=== PATIENT | male | born 1960 | race Caucasian/White ===

== ENCOUNTER 2016-10-07 10:16 | Inpatient (IN) | payer MEDICAID ==
[~2016-10-07] VITALS: Ht 182.9 cm; Wt 81.3 kg
[~2016-10-07 10:16] MED LIST: ACET650S27 PEG; DICL100G5 TOP; ENOX40DI SQ; HYPR15DR4 OP; LACT-128 PEG; LEVE500T26 PEG; MAGN400O4 PEG; OXYC5TAB84 PO; PROP10TA10 PEG; [UNRECOGNIZED DRUG - CODE] PEG
--- OUTSIDE RECORDS SUMMARY | 2016-10-07 10:26 | XMS REPORT | Continuity of Care Document ---
Author Author [facility] Organization [facility] Address Unknown Phone Unavailable Support Name Relationship Address Phone ISHAN PORTILLO MD Caregiver [address] [place] [address] [place] [address] Unavailable ISHAN PORTILLO MD Caregiver [address] [place] [address] [place] [address] Unavailable ROSA NGUYEN Caregiver [address] [place] [address] Unavailable ARIADNE METCALF Next Of Kin [address] [place] [address] Insurance Providers Guarantor Héctor Sprague Address [address] [place] [address] Email DENIED/NO PORTAL Payer Self Pay Subscriber's Name Héctor Sprague Relationship 18 Self Advance Directives Directive Response Recorded Date/Time Ordered Resuscitation Status Full Code 06/20/16 7:56pm Resuscitation Documents on File No 06/20/16 6:26pm DPOA for Healthcare Only No 06/21/16 7:32am Living Will No 06/20/16 6:26pm Problems Active Problems Medical Problem Onset Date Status Anemia Unknown Acute Blood loss anemia Unknown Acute Chronic constipation Unknown Chronic Dysphagia following cerebrovascular accident (CVA) 04/27/2016 Chronic Gait instability Unknown Chronic HTN (hypertension) Unknown Chronic Hemiparesis affecting left side as late effect of cerebrovascular accident (CVA ) 04/27/2016 Chronic Knee pain, left Unknown Acute Left displaced femoral neck fracture Unknown Acute Tobacco dependence Unknown Chronic Medications Current Home Medications Medication Dose Units Route Directions Days Qty Instructions Start Date Acetaminophen 650 Mg/20.3 Ml Solution 650 Mg Peg Tube Every 6 Hours as needed for Pain/Air Hunger 06/20/16 Diclofenac Sodium (Voltaren) 100 Gm Gel..gram. 1 Applic Topically Three Times A Day 06/20/16 Enoxaparin Sodium (Lovenox) 40 Mg/0.4 Ml Inj 40 Mg Sub-Q Every 24 Hours 27 Days 06/25/16 Guaifenesin (Cough Syrup) 100 Mg/5 Ml Liquid 10 Ml Peg Tube Every 4 Hours as needed for Cough 06/20/16 Hypromellose (Isopto Tears) 150 Drop/15 Ml Drops 1 Drop Ophthalmic As Needed for Dry Eyes 06/20/16 Lactose-Reduced Food/Fiber (Jevity 1.5 Chris Liquid) 237 Ml Liquid 270 Ml Peg Tube Four Times Daily 06/20/16 Levetiracetam 500 Mg Tablet 500 Mg Peg Tube Twice A Day 06/20/16 Magnesium Hydroxide (Milk Of Magnesia) 400 Mg/5 Ml Oral.susp 30 Ml Peg Tube Twice A Day as needed for Constipation/Stool Softening 06/20/16 Oxycodone Hcl 5 Mg Tablet 5-15 Mg Oral Every 3 Hours as needed for Pain 60 Tablet 06/25/16 Propranolol Hcl 10 Mg Tablet 10 Mg Peg Tube Twice A Day Take 1 tablet, by mouth, 2 times a day. 06/20/16 Past Home Medications Medication Directions Ordered Status Amlodipine Besylate 5 Mg Tablet, 5 Mg Peg Tube Daily 06/20/16 Discontinued Social History Social History Problem Response Recorded Date/Time Onset Date Status Reason for Hospitalization Left hip fracture 06/25/2016 9:55am Not Applicable Not Applicable Has the pt used tobacco in the last 12 months Yes 06/20/2016 6:29pm Not Applicable Not Applicable Query Response Start Date Stop Date Smoking Status Former smoker Hospital Discharge Instructions Instructions: Care Instructions: Reason for Hospitalization: Left hip fracture I was in the hospital because (patient own words): "I FELL" Discharge Diet: Feeding tub Discharge Activity: WBAT Follow Up Appointments: Schedule follow up apt with Dr Nguyen in 1 week. Check CBC and BMP at that time Schedule follow up apt with Dr Diaz in 2 weeks for post-op follow up Pending Lab / Results: No Pending Lab Patient Instructions: Weight bearing as tolerated. Lovenox 40mg SQ daily for 30 days post-op. Last dose 07/21/16. Wound/Incision Care: Leave hip dressing intact until follow up Pain Scale Utilized to Educate Patient: 0-10 Pain Scale Pain Management/Treatment: Oxycodone as needed for pain control Expected Signs/Symptoms: Continued strenghtening and recovery Notify Physician If: Elevated fever, severe pain, shortness of breath, bleeding or other concerns During Business Hours:: Please call the physician's office [facility] After Business Hours:: Please call [phone] and have the beauty operator apprentice page the physician. Condition at time of discharge: Good Plan of Care Discharge Date 06/25/16 12:20pm Disposition 04 TO [facility] Instructions/Education Provided [facility] [place] [facility] [place] Instructions Prescriptions See Medication Section Care Plan and Goals See Discharge Instructions Section Functional Status Query Response Date Recorded Mobility Status Ambulatory w/assist June 25, 2016 9:55am Assistive Devices None June 25, 2016 9:55am Activity Limitations None June 25, 2016 9:55am Feeding Ability Independent June 25, 2016 9:55am Toileting Ability Independent June 25, 2016 9:55am Grooming Ability Assist June 25, 2016 9:55am Dressing Ability Assist June 25, 2016 9:55am Driving Ability Dependent June 25, 2016 9:55am Housework Ability Dependent June 25, 2016 9:55am Meal Preparation Ability Assist June 25, 2016 9:55am Stair Climbing Ability Assist June 25, 2016 9:55am Ability to complete ADL's impeded by Impaired Mobility June 25, 2016 9:55am Cognitive/Perceptual Impairments None June 25, 2016 9:55am Allergies, Adverse Reactions, Alerts Allergen Type Severity Reaction Status Last Updated No Known Drug Allergies Allergy Unknown Active 06/20/16 Immunizations No immunization records. Vital Signs Acute Vital Signs Vital Response Date/Time Temperature (Fahrenheit) 95.8 deg F (96.8 - 99.1) 06/25/2016 12:13pm Temperature (Calculated Celsius) 35.54082 degrees C (36.0 - 37.3) 06/25/2016 12:13pm Temperature Source Oral 06/25/2016 12:13pm Pulse Rate (adult) 88 bpm (60 - 100) 06/25/2016 12:13pm Respiratory Rate 16 breaths/min (10 - 20) 06/25/2016 12:13pm O2 Sat by Pulse Oximetry 95 % (90 - 100) 06/25/2016 12:13pm Oxygen Delivery Method Room Air 06/25/2016 12:13pm Oxygen Delivery Method Room Air 06/21/2016 6:00pm Oxygen Flow Rate 3.00 L/min 06/21/2016 5:45pm Blood Pressure 104/67 mm Hg 06/25/2016 12:13pm Blood Pressure Source Automatic Cuff 06/25/2016 12:13pm Height (Feet) 6 feet 06/24/2016 11:44am Height (Inches) 0.00 inches 06/24/2016 11:44am Weight (Kilograms) 76.300 kg 06/25/2016 11:57am Body Mass Index (BMI) 21.1 06/20/2016 6:22pm Results Laboratory Results Test Name Result Units Flags Reference Collection Date/Time Result Date/ Time Comments White Blood Count 9.4 T/MM3 4.5-11.0 06/25/2016 4:1606/25/2016 5: 09am Red Blood Count 2.69 M/MM3 L 4.50-5.90 06/25/2016 4:1606/25/2016 5: 09am Hemoglobin 8.3 GM/DL L 13.5-17.5 06/25/2016 4:1606/25/2016 5:09am Hematocrit 25.4 % L 41-53 06/25/2016 4:1606/25/2016 5:09am Mean Corpuscular Volume 94.4 UM3 80-100 06/25/2016 4:1606/25/2016 5: 09am Mean Corpuscular Hemoglobin 30.9 UUG 26-34 06/25/2016 4:162015 5:09am Mean Corpuscular Hemoglobin Concent 32.7 GM/DL 31-37 06/25/2016 4:1606/25/2016 5:09am RDW Standard Deviation 39.3 FL 36.9-50.2 06/25/2016 4:1606/25/2016 5 :09am Platelet Count 219 T/MM3 130-400 06/25/2016 4:1606/25/2016 5:09am Mean Platelet Volume 11.9 UM3 9.4-12.4 06/25/2016 4:1606/25/2016 5: 09am Neutrophils (%) (Auto) 61.6 % 33-66 06/25/2016 4:1606/25/2016 5: 09am Lymphocytes (%) (Auto) 21.9 % L 23-45 06/25/2016 4:1606/25/2016 5: 09am Monocytes (%) (Auto) 14.7 % H 0-9.0 06/25/2016 4:1606/25/2016 5:09am Eosinophils (%) (Auto) 1.2 % 0-4 06/25/2016 4:1606/25/2016 5:09am Basophils (%) (Auto) 0.4 % 0-2 06/25/2016 4:1606/25/2016 5:09am Immature Granulocyte % (Auto) 0.2 % 0.0-0.5 06/25/2016 4:162015 5:09am Absolute Neutrophils (auto) 5.8 T/MM3 1.8-7.7 06/25/2016 4:162015 5:09am Absolute Lymphocytes (auto) 2.1 T/MM3 1-4.8 06/25/2016 4:162015 5:09am Absolute Monocytes (auto) 1.4 T/MM3 H 0-0.8 06/25/2016 4:162015 5:09am Absolute Eosinophils (auto) 0.1 T/MM3 0-0.5 06/25/2016 4:162015 5:09am Absolute Basophils (auto) 0.0 T/MM3 0-0.2 06/25/2016 4:1606/25/2016 5:09am Absolute Immature Granulocyte (auto 0.02 T/MM3 0.00-0.03 06/25/2016 4: 1606/25/2016 5:09am Prothromb Time International Ratio 1.18 H 0.76-1.04 06/20/2016 6:38pm 06/20/2016 6:51pm THERAPUTIC RANGE=2.00-3.00 FOR ANTI-THROMBOSIS THERAPUTIC RANGE=2.50-3.50 FOR IMPLANTED VALVE Icterus Index < 2 0-7 06/25/2016 4:1606/25/2016 5:18am Chemistry Specimen Hemolysis < 15 0-25 06/25/2016 4:1606/25/2016 5 :18am 0-25: Specimen Exhibited No Hemolysis. Turbidity < 20 0-20 06/25/2016 4:1606/25/2016 5:18am Sodium Level 140 MEQ/L 134-144 06/25/2016 4:1606/25/2016 5:18am Potassium Level 3.9 MEQ/L 3.6-5 06/25/2016 4:1606/25/2016 5:18am Chloride Level 100 MEQ/L 98-107 06/25/2016 4:1606/25/2016 5:18am Carbon Dioxide Level 32 MEQ/L H 22-30 06/25/2016 4:1606/25/2016 5: 18am Anion Gap 8 MEQ/L 5-15 06/25/2016 4:1606/25/2016 5:18am Blood Urea Nitrogen 15.0 MG/DL 9-20 06/25/2016 4:1606/25/2016 5: 18am Creatinine 0.4 MG/DL L 0.8-1.5 06/25/2016 4:1606/25/2016 5:18am BUN/Creatinine Ratio 38 RATIO H 6-26 06/25/2016 4:1606/25/2016 5: 18am Glomerular Filtration Rate Calc 223 06/25/2016 4:1606/25/2016 5: 18am Glucose Level 111 MG/DL H 75-110 06/25/2016 4:1606/25/2016 5:18am Calculated Osmolality 271 MOSM/KG 261-280 06/25/2016 4:1606/25/2016 5:18am Calcium Level 8.3 MG/DL L 8.4-10.2 06/25/2016 4:1606/25/2016 5:18am Total Bilirubin 0.50 MG/DL 0.20-1.30 06/25/2016 4:1606/25/2016 5: 18am Alkaline Phosphatase 48 U/L 38-126 06/25/2016 4:1606/25/2016 5:18am Total Protein 6.2 G/DL L 6.3-8.2 06/25/2016 4:1606/25/2016 5:18am Albumin 2.9 G/DL L 3.5-5.0 06/25/2016 4:1606/25/2016 5:18am Globulin 3.3 G/DL 2.4-3.6 06/25/2016 4:1606/25/2016 5:18am Albumin/Globulin Ratio 0.9 RATIO L 1.1-2.2 06/25/2016 4:1606/25/2016 5:18am Aspartate Amino Transf (AST/SGOT) 29 U/L 17-59 06/25/2016 4:16am 2015 5:18am Alanine Aminotransferase (ALT/SGPT) 30 U/L 21-72 06/25/2016 4:16am 5:18am Magnesium Level 2.1 MG/DL 1.6-2.3 06/25/2016 4:16am 06/25/2016 5:18am Thyroid Stimulating Hormone (TSH) 2.55 MIU/L 0.47-4.68 06/20/2016 6: 38pm 06/20/2016 7:27pm Prealbumin 22.6 MG/DL 17.6-36.0 06/20/2016 6:38pm 06/20/2016 7:33pm Stool C. difficile Toxin B Gene PCR NEGATIVE NEGATIVE 06/25/2016 4: 07am 06/25/2016 5:58am If Toxin A is clinically indicated, treat accordingly. Urine Color YELLOW YELLOW 06/20/2016 6:33pm 06/20/2016 6:55pm Urine Turbidity SL CLOUDY CLEAR 06/20/2016 6:33pm 06/20/2016 6:55pm Urine Specific [place] 1.015 1.015-1.025 06/20/2016 6:33pm 2015 6:55pm Urine pH 8.5 H 5.0-8.0 06/20/2016 6:33pm 06/20/2016 6:55pm Urine Leukocyte Esterase NEGATIVE NEGATIVE 06/20/2016 6:33pm 2015 6:55pm Urine Nitrite NEGATIVE NEGATIVE 06/20/2016 6:33pm 06/20/2016 6:55pm Urine Protein NEGATIVE NEGATIVE 06/20/2016 6:33pm 06/20/2016 6:55pm Urine Glucose (UA) NEGATIVE NEGATIVE 06/20/2016 6:33pm 06/20/2016 6: 55pm Urine Ketones NEGATIVE NEGATIVE 06/20/2016 6:33pm 06/20/2016 6:55pm Urine Urobilinogen 0.2 EU/DL NORMAL 06/20/2016 6:33pm 06/20/2016 6: 55pm Urine Bilirubin NEGATIVE NEGATIVE 06/20/2016 6:33pm 06/20/2016 6: 55pm Urine Blood NEGATIVE NEGATIVE 06/20/2016 6:33pm 06/20/2016 6:55pm Urinalysis Comment MICROSCOPIC NOT IND. 06/20/2016 6:33pm 2015 6:55pm Name: HÉCTOR SPRAGUE Unit #: [id number] : 1960 Sex: M Admit Date: 06/20/16 Loc / Svc: SRG Discharge Date: DIAGNOSTIC IMAGING REPORT Report #: [id number] [facility] [place] Indication: ITS.REASON: fever, leukocytosis PROCEDURE: CHEST 1 VIEW: Encounter: Initial Comparison: June 20, 2016 FINDINGS: The lungs are stable. There is no new abnormal airspace opacity, pleural effusion or pneumothorax identified. The heart size, pulmonary vasculature and mediastinum are unchanged. IMPRESSION: Stable chest without acute cardiopulmonary abnormality. . Procedures No known history of procedures. Encounters Encounter Location Arrival/Admit Date Discharge/Depart Date Attending Provider Discharged Inpatient [facility] 06/20/16 5:53pm 06/25/16 12:20pm ISHAN PORTILLO MD
[2016-10-07] MEDS ORDERED: LEVE500S PEG (10:29)
[2016-10-07] MEDS ORDERED: GABA-338 PEG (10:30)
[2016-10-07] MEDS ORDERED: PARO-38 PO (10:31)
[2016-10-07] MEDS ORDERED: HYDR-4078 PEG (10:33)
--- NOTE | 2016-10-07 10:38 | NUR ---
ADMISSION PT WAS TO BE DIRECT ADMIT TO 110. PT TRANSFERRED TO ROOM 110 PER CART
--- NOTE | 2016-10-07 10:38 | NUR ---
ARRIVED PT ARRIVED AT 1038 VIA CART FROM [facility] IN [place]. PT TRANSFERRED VIA SLIDE BOARD WITH ASSIST TIMES 3. PT SETTLED INTO THE ROOM AT THIS TIME.
[2016-10-07 10:52] VITALS: Ht 182.9 cm; Wt 81.3 kg
[2016-10-07] MEDS ORDERED: MORPHINE SULFATE 2 MG SYRINGE IV PRN (11:00)
[2016-10-07] MEDS ORDERED: ONDANSETRON 4mg/2ml INJECTION IV PRN (11:00)
[2016-10-07 11:14] VITALS: BP 116/67; PULSE 87; RESP 16; TEMP 99.7; O2SAT 95
[2016-10-07] MEDS ORDERED: CEFAZOLIN 1 GRAM INJECTION IV ONE (11:15)
[2016-10-07] MEDS ORDERED: NOZIN NASAL SWAB NS PRN (11:15)
[2016-10-07] MEDS ORDERED: DEXAMETHASONE 4mg/ml - 1ml INJECTION IV ONE (11:15)
[2016-10-07] MEDS ORDERED: MENT118G TOP (11:15)
[2016-10-07 11:22] VITALS: PULSE 87; RESP 16; O2SAT 95
[2016-10-07 11:27] LABS: BASOPHILS # (AUTO) 0.1 T/MM3 (0-0.2); BASOPHILS % (AUTO) 0.5 % (0-2); EOSINOPHILS # (AUTO) 0.1 T/MM3 (0-0.5); EOSINOPHILS % (AUTO) 0.5 % (0-4); HCT - HEMATOCRIT 31.5 % (41-53); HGB - HEMOGLOBIN 10.4 GM/DL (13.5-17.5); IMMATURE GRANULOCYTE # (AUTO) 0.02 T/MM3 (0.00-0.03); IMMATURE GRANULOCYTE % (AUTO) 0.2 % (0.0-0.5); LYMPHOCYTES # (AUTO) 2.2 T/MM3 (1-4.8); LYMPHOCYTES % (AUTO) 21.2 % (23-45); MEAN CORPUSCULAR HGB 28.8 UUG (26-34); MEAN CORPUSCULAR VOLUME 87.3 UM3 (80-100); MONOCYTES # (AUTO) 0.9 T/MM3 (0-0.8); MONOCYTES % (AUTO) 8.5 % (0-9.0); NEUTROPHILS #(AUTO)-ABSOLUTE 7.2 T/MM3 (1.8-7.7); NEUTROPHILS % (AUTO) 69.1 % (33-66); RED BLOOD COUNT 3.61 M/MM3 (4.50-5.90); WBC - WHITE BLOOD COUNT 10.4 T/MM3 (4.5-11.0)
[2016-10-07 11:32] LABS: INR 1.25 (0.76-1.04); PROTHROMBIN TIME 13.6 SEC (9.31-12.49)
--- NOTE | 2016-10-07 11:32 | CONSPD ---
Consultation Info Date DATE: 10/07/16 TIME: 11:14 Attending Physician Jayro Diaz MD Reason for Consultation: left hip periprosthetic hip fracture Impression/Recommendation Impression/Recommendation: (1) Periprosthetic fracture around internal prosthetic left hip joint, initial encounter Status: Acute Recommendation: Dr. Diaz is recommending a revision of the left hip endoprosthesis with possible conversion to total hip arthroplasty. Surgery is planned for 0730 10/08/16. NPO after midnight consent labs medical clearance Risks and benefits of the recommended procedure were discussed with the patient and/or patient's legal financial services representative. They include: infection, nerve damage, artery damage, stroke, SD, PE, DVT, ileus, continued pain, or risk that the injury may not heal despite surgery. There are also medical risks of anesthesia. Risks are not limited to the above mentioned alone. Ortho HPI HPI Elements HPI This is a 55 year old male who resides at [facility] in [place]. He is status post a left hip endoprosthesis by Dr. Diaz on 06/20/16. He was seen in our clinic as recently as 10/04/16 at which time x-rays were taken confirming a well seated left endoprosthesis. He is a marginal ambulator at best secondary to left sided weakness from a stroke sustained on 04/27/16. He has residual dysphasia as well. Héctor states he fell asleep in his wheelchair at the alf after his visit on 10/04/16 and fell out of his wheelchair causing left hip pain. Apparently, no X-rays were completed until today, which revealed a periprosthetic hip fracture on the left. Dr. Diaz was contacted for definitive surgical treatment and agreed to be the management consultant. Dr. Chau agreed to be the admitting physician. Héctor presently locates pain in the left hip, worse with activity, better with rest and immobilization and narcotics. Review of Systems Constitutional: DENIES: chills, dizziness, fever, weakness Cardiovascular DENIES: chest pain Rhythm/Rate: DENIES: irregular beat Vascular: DENIES: intermittent claudication, pallor of an extremity Pulmonary Respiratory: DENIES: cough, sputum GI Upper Abdomen: DENIES: pain Lower Abdomen: DENIES: blood in stool General: DENIES: dysuria, pain Musculoskeletal General: joint pain (left hip), DENIES: pain Integumentary Skin: DENIES: rash Neurological General: numbness, weakness (known left sided stroke) Endocrine DENIES: heat/cold intolerance Hematologic/Lymphatic DENIES: easy bruising Past Medical History Adult Past Medical History Patient History: (1) HTN (hypertension) (2) Chronic constipation (3) Gait instability (4) Dysphagia following cerebrovascular accident (CVA) Onset Date: 04/27/2016 (5) Hemiparesis affecting left side as late effect of cerebrovascular accident ( CVA) Onset Date: 04/27/2016 Surgical History Patient's Surgical History: PEG Tube placement Current Medications Acetaminophen (Acetaminophen) 650 Mg/20.3 Ml Solution, 650 MG PEG Q6H PRN for PAIN/AIR HUNGER, (Reported) Last Taken: Unknown Dose on 10/06/16 Diclofenac Sodium (Voltaren) 100 Gm Gel..gram., 1 APPLIC TOP TID, (Reported) Gabapentin (Gabapentin) 300 Mg Capsule, 300 MG PEG TID, (Reported) Last Taken: Unknown Dose on 10/07/16 0400 Guaifenesin (Cough Syrup) 100 Mg/5 Ml Liquid, 10 ML PEG Q4HR PRN for COUGH, (Reported) Last Taken: Unknown Dose on Unknown Date & Time Hydrocodone/Acetaminophen ( [place] 10-325 Tablet) 10-325 Tablet, 1 TAB PEG Q6H PRN for PAIN, (Reported) Last Taken: Unknown Dose on 10/07/16 Hypromellose (Isopto Tears) 150 Drop/15 Ml Drops, 1 DROP OP PRN, (Reported) Last Taken: UNKNOWN on Unknown Date & Time Lactose-Reduced Food/Fiber ( Jevity 1.5 Chris Liquid) 237 Ml Liquid, 270 ML PEG QID, (Reported) Last Taken: 1 CAN on 10/07/16 0600 Levetiracetam (Levetiracetam) 500 Mg Tablet , 500 MG PEG BID, (Reported) Last Taken: 500 MG on 10/07/16 0700 Levetiracetam (Levetiracetam) 500 Mg/5 Ml Solution, 5 ML PEG BID, (Reported) Last Taken: Unknown Dose on 10/07/16 0800 Magnesium Hydroxide (Milk of Magnesia) 400 Mg/5 Ml Oral.susp, 30 ML PEG BID PRN for CONSTIPATION/STOOL SOFTENING, (Reported) Last Taken: Unknown Dose on 10/03/16 Menthol (Biofreeze) 118 Ml Gel..ml., 1 APPLIC TOP PRN, (Reported) Last Taken: 1 APPLIC on 10/06/16 1340 Paroxetine HCl (Paroxetine HCl) 20 Mg Tablet, 20 MG PO DAILY, (Reported) Last Taken: Unknown Dose on 10/07/16 0800 Propranolol HCl (Propranolol HCl) 10 Mg Tablet, 10 MG PEG BID, (Reported) Last Taken: Unknown Dose on 10/07/16 0800 Allergies Allergies: Coded Allergies: No Known Drug Allergies (Verified Allergy, Unknown, 06/20/16) Family History Family History: .Father with renal failure. Brother with CVA Vaccines No Social History Does patient use chewing tobac: No Second Hand Exposure: No Substance Use Type: does not use Alcohol Intake: former alcohol drinker Marital Status: Housing: alf Current Occupational Status: previously employed Advance Directives: Yes DPOA for Healthcare Only Physical Exam General General: well nourished, well developed, no acute distress Respiratory FOUND non-labored Cardiovascular FOUND pedal pulses intact Capillary Refill: <2 sec Abdomen Abdominal: FOUND soft, NOT FOUND tender Musculoskeletal Musculoskeletal Brief: FOUND: deformity (left leg shortened and externally rotated), loss of motion (left hip), tenderness Integumentary FOUND dry, FOUND pink, FOUND warm Neurologic FOUND intact to light touch Comments status post stroke affecting left side. He does have AROM of the knee and ankle. MENA RAINES Oct 07, 2016 11:15
[2016-10-07 11:37] LABS: ALBUMIN 3.6 G/DL (3.5-5.0); ALBUMIN/GLOBULIN RATIO 0.9 RATIO (1.1-2.2); ALKALINE PHOSPHATASE 74 U/L (38-126); ALT (SGPT) 41 U/L (21-72); ANION GAP 10 MEQ/L (5-15); AST (SGOT) 20 U/L (17-59); BUN/CREATININE RATIO 32 RATIO (6-26); CALCIUM 8.8 MG/DL (8.4-10.2); CHLORIDE 99 MEQ/L (98-107); CO2 - CARBON DIOXIDE 31 MEQ/L (22-30); CREATININE 0.5 MG/DL (0.8-1.5); GLOMERULAR FILTRATION RATE 173; GLUCOSE 126 MG/DL (75-110); POTASSIUM 4.2 MEQ/L (3.6-5); SODIUM 140 MEQ/L (134-144); TOTAL PROTEIN 7.4 G/DL (6.3-8.2)
--- NOTE | 2016-10-07 11:57 | HPPDOC ---
MICHAEL MARTINEZ V CARROTING MACHINE OPERATOR 10/07/16 1129: HPI - Adult Date DATE: 10/07/16 TIME: 11:19 General Chief Complaint: Fall with left periprosthetic hip fracture History of Present Illness Héctor is a pleasant 55-year-old male who is well known to the hospitalist services as he was admitted last June for acute left femoral neck fracture. He underwent a left Hemiarthroplasty by Dr. Diaz. He currently resides at [facility] in [place], [place]. Due to his chronic comorbidities including an acute CVA in 2015 with which left him with left heel. No paresis and chronic dysphasia. He does have a PEG tube placed in which he receives all nutrition feeds as well as medications. Patient reports that on Monday10/05/16 he was sitting in the wheelchair and he fell out of it, landing on the left. He was seen by his primary care provider , Dr. Jarrett yesterday at those were a hospital in which he had an x-ray obtained at that time. He was found to have a periprosthetic left hip fracture with a proximal fragment indicating mild displacement. [facility] Navarro was contacted by Dr Jarrett regarding direct admission for further evaluation and treatment. Will be admitted as an inpatient under the care of Dr. Navarro with consultation placed to Dr. Diaz for orthopedic evaluation and treatment. Héctor is seen today on initial examination. He is alert,oriented and pleasant during examination. Does complain of left hip discomfort during examination. Lower extremity is noted to be laterally rotated. Strong pedal pulse with sensation and motor intact. Past Medical History Past Medical History History of acute CVA.-04/2016 Left hemiparesis- chronic since CVA Chronic dysphagia. PEG tube presence Hypertension. Hx of alcohol and tobacco dependence Surgical History Patient's Surgical History: Left Hemiarthroplasty- 06/22/16- Dr Diaz PEG Tube placement 2016 Hernia repair Current Medications Home Meds Reported Medications Menthol (Biofreeze) 118 Ml Gel..ml., 1 APPLIC TOP PRN 10/07/16 Hydrocodone/Acetaminophen ([place] 10-325 Tablet) 10-325 Tablet, 1 TAB PEG Q6H Y for PAIN 10/07/16 Paroxetine HCl (Paroxetine HCl) 20 Mg Tablet, 20 MG PO DAILY 4/7/17 Gabapentin (Gabapentin) 300 Mg Capsule, 300 MG PEG TID 10/07/16 Levetiracetam (Levetiracetam) 500 Mg/5 Ml Solution, 5 ML PEG BID 10/07/16 Lactose-Reduced Food/Fiber (Jevity 1.5 Chris Liquid) 237 Ml Liquid, 270 ML PEG QID 06/20/16 Guaifenesin (Cough Syrup) 100 Mg/5 Ml Liquid, 10 ML PEG Q4HR Y for COUGH 06/20/16 Acetaminophen (Acetaminophen) 650 Mg/20.3 Ml Solution, 650 MG PEG Q6H Y for PAIN /AIR HUNGER 06/20/16 Magnesium Hydroxide (Milk of Magnesia) 400 Mg/5 Ml Oral.susp, 30 ML PEG BID Y for CONSTIPATION/STOOL SOFTENING 06/20/16 Propranolol HCl (Propranolol HCl) 10 Mg Tablet, 10 MG PEG BID 06/20/16 Hypromellose (Isopto Tears) 150 Drop/15 Ml Drops, 1 DROP OP PRN for DRY EYES 06/20/16 Diclofenac Sodium (Voltaren) 100 Gm Gel..gram., 1 APPLIC TOP TID, TUB 06/20/16 Discontinued Reported Medications Levetiracetam (Levetiracetam) 500 Mg Tablet, 500 MG PEG BID, TAB 06/20/16 Discontinued Scripts Oxycodone HCl (Oxycodone HCl) 5 Mg Tablet, 5-15 MG PO Q3H Y for PAIN, #60 TAB Prov:MICHAEL MARTINEZ APRN 06/25/16 Enoxaparin Sodium (Lovenox) 40 Mg/0.4 Ml Inj, 40 MG SQ Q24H for 27 Days Prov:MICHAEL MARTINEZ APRN 06/25/16 Allergies: Coded Allergies: No Known Drug Allergies (Verified Allergy, Unknown, 06/20/16) Family History Family History: Father with renal failure. Brother with CVA Social History Smoking Status: Former smoker Does patient use chewing tobac: No Second Hand Exposure: No Substance Use Type: does not use Alcohol Intake: former alcohol drinker Marital Status: Housing: [facility]) Current Occupational Status: previously employed Advance Directives: Yes DPOA for Healthcare Only, Yes Full Code Social History Comments PCP Dr Jarrett ([place]) Review of Systems Musculoskeletal General: joint pain (left hip pain), pain (Left hip pain), see HPI All Other Systems All Other Systems: Reviewed Physical Exam General General Nourishment: well nourished, well developed Vital Signs Vital Signs Date Time Temp Pulse Resp B/P Pulse Ox O2 Delivery O2 Flow Rate FiO2 10/07/16 11:14 99.7 87 16 116/67 95 Room Air Height (Feet): 6 Height (Inches): 0.00 Eyes Brief: FOUND: EOMI, PERRL Respiratory Brief: FOUND: clear all silver, equal bilaterally, NOT FOUND: wheezes Cardiovascular (brief) Cardiac Brief: FOUND: regular rate, regular rhythm, NOT FOUND: pedal edema Abdomen (brief) Abdominal Brief: FOUND: BS normo active x4, soft, NOT FOUND: distended, tender Musculoskeletal (brief) Musculoskeletal Brief: FOUND: tenderness (Left hip tenderness) Integumentary (brief) Integumentary Brief: FOUND: dry, pink, warm Neurologic (brief) Neurological Brief: FOUND: cranial 2-12 intact (grossly intact) Neurologic RN Documented GCS Eye Opening: Verbal: Motor: Total: Psychiatric (brief) FOUND: alert, attentive, normal affect, oriented Assessment & Plan Problems: (1) Periprosthetic fracture around internal prosthetic left hip joint, initial encounter Status: Acute Assessment & Plan: Fall on 10/05/16 obtaining acute periprosthetic fracture- Left (2) Hemiparesis affecting left side as late effect of cerebrovascular accident ( CVA) Onset Date: 04/27/2016 Status: Chronic (3) Dysphagia following cerebrovascular accident (CVA) Onset Date: 04/27/2016 Status: Chronic (4) HTN (hypertension) Status: Chronic (5) Gait instability Status: Chronic (6) Chronic constipation Status: Chronic Plan/Intensity of Service Admit patient to inpatient status under the care of Dr. Navarro for fall with acute periprosthetic fracture of the left hip. Consultation is placed to Dr. Diaz and the orthopedic team for further with evaluation and treatment. Medical screening including CBC, BMP, urinalysis, EKG and chest x-ray. IV lock in place for pain control NPO with Tube feedings only. Tube Feeding management including Jevity 1.5 calorie, 270 mL 5 times a day, and 60 ML before and after each feeding of free water. Total free water will be 600 ml/24 hr. Will continue to use [place] 10 mg that he chronically uses for pain however will also have IV morphine available for acute breakthrough pain. At midnight we will make patient nothing by mouth for probable surgery tomorrow 10/08. Continue with Keppra 500mg BID for seizure prophylaxis. Will monitor post-op CBC routinely to evaluation for postop anemia At time of discharge medical care is to return to PCP Dr Jarrett Code Status Full Code, unverified Hospital Course Summary Disclaimer The hospital course summary below is not to be considered part of the above Progress Note. Hospital Course Summary Admit patient to inpatient status under the care of Dr. Navarro for fall with acute periprosthetic fracture of the left hip. Consultation is placed to Dr. Diaz and the orthopedic team for further with evaluation and treatment. Medical screening including CBC, BMP, urinalysis, EKG and chest x-ray. IV lock in place for pain control NPO with Tube feedings only. Tube Feeding management including Jevity 1.5 calorie, 270 mL 5 times a day, and 60 ML before and after each feeding of free water. Total free water will be 600 ml/24 hr. Will continue to use [place] 10 mg that he chronically uses for pain however will also have IV morphine available for acute breakthrough pain. At midnight we will make patient nothing by mouth for probable surgery tomorrow 10/08. Continue with Keppra 500mg BID for seizure prophylaxis. Will monitor post-op CBC routinely to evaluation for postop anemia At time of discharge medical care is to return to PCP SADI Esparza MD 10/07/16 1614: Past Medical History Current Medications Home Meds Reported Medications Menthol (Biofreeze) 118 Ml Gel..ml., 1 APPLIC TOP PRN 10/07/16 Hydrocodone/Acetaminophen ([place] 10-325 Tablet) 10-325 Tablet, 1 TAB PEG Q6H Y for PAIN 10/07/16 Paroxetine HCl (Paroxetine HCl) 20 Mg Tablet, 20 MG PO DAILY 10/07/16 Gabapentin (Gabapentin) 300 Mg Capsule, 300 MG PEG TID 10/07/16 Levetiracetam (Levetiracetam) 500 Mg/5 Ml Solution, 5 ML PEG BID 10/07/16 Lactose-Reduced Food/Fiber (Jevity 1.5 Chris Liquid) 237 Ml Liquid, 270 ML PEG QID 06/20/16 Guaifenesin (Cough Syrup) 100 Mg/5 Ml Liquid, 10 ML PEG Q4HR Y for COUGH 06/20/16 Acetaminophen (Acetaminophen) 650 Mg/20.3 Ml Solution, 650 MG PEG Q6H Y for PAIN /AIR HUNGER 06/20/16 Magnesium Hydroxide (Milk of Magnesia) 400 Mg/5 Ml Oral.susp, 30 ML PEG BID Y for CONSTIPATION/STOOL SOFTENING 06/20/16 Propranolol HCl (Propranolol HCl) 10 Mg Tablet, 10 MG PEG BID 06/20/16 Hypromellose (Isopto Tears) 150 Drop/15 Ml Drops, 1 DROP OP PRN for DRY EYES 06/20/16 Diclofenac Sodium (Voltaren) 100 Gm Gel..gram., 1 APPLIC TOP TID, TUB 06/20/16 Discontinued Reported Medications Levetiracetam (Levetiracetam) 500 Mg Tablet, 500 MG PEG BID, TAB 06/20/16 Discontinued Scripts Oxycodone HCl (Oxycodone HCl) 5 Mg Tablet, 5-15 MG PO Q3H Y for PAIN, #60 TAB Prov:MICHAEL MARTINEZ APRN 06/25/16 Enoxaparin Sodium (Lovenox) 40 Mg/0.4 Ml Inj, 40 MG SQ Q24H for 27 Days Prov:MICHAEL MARTINEZ APRN 06/25/16 Allergies: Coded Allergies: No Known Drug Allergies (Verified Allergy, Unknown, 06/20/16) Assessment & Plan Problems: (1) Periprosthetic fracture around internal prosthetic left hip joint, initial encounter Status: Acute (2) HTN (hypertension) Status: Chronic (3) Hemiparesis affecting left side as late effect of cerebrovascular accident ( CVA) Onset Date: 04/27/2016 Status: Chronic (4) Dysphagia following cerebrovascular accident (CVA) Onset Date: 04/27/2016 Status: Chronic (5) Anemia Status: Chronic (6) Gait instability Status: Chronic (7) Chronic constipation Status: Chronic Assessment I have independently evaluated and examined this patient. I reviewed the chart, the patient's history, and the CARROTING MACHINE OPERATOR's documented findings as above. We discussed and formulated the assessment and plan as above with additions as below: Mr. Valencia has left hemiparesis as a result of stroke in April 2016 which has left him wheelchair bound and dependent on G-tube feedings. He fell leading to left femoral neck fracture in June 2016 and underwent hemiarthroplasty. He fell out of his wheelchair 2 days ago while asleep resulting in periprosthetic femur fracture and is subsequently admitted today for surgical repair after fracture was identified at the nursing facility. Patient complains of pain in his leg. He denies any acute respiratory or cardiac symptoms and has had no change in chronic neurological deficits in the recent past. Patient is a poor historian and details are few. Examination reveals left leg to be shortened relative to the right but sensation is intact. The patient is not able to move the left foot or toes. Respirations are nonlabored and breath sounds clear anteriorly. Cardiac rhythm regular. Abdomen is benign and G-tube site clean and dry. The patient has fairly dense left hemiparesis with no movement of the left leg appreciated although he does have some distal movement in the left arm at the elbow and weak left radiology equipment servicer but no proximal left arm use. Sensation is intact on the left and right sided power is strong. Twelve-lead EKG is been reviewed by myself demonstrating sinus rhythm with low voltage in the limb leads, no acute changes present. EKG unchanged from June 2016. Chest x-ray also reviewed by myself-NAD; left hip films reviewed demonstrating oblique fracture of the proximal femur. Hemoglobin 10.4 with normal MCV, improved from discharge in June. Chemistries unremarkable. Stable for surgical correction per orthopedics. Discussed with Dr. Diaz. Tube feedings modified to [facility] formulary-fiber source-1.2 500 mL 4 times a day with 75 mL water before and after each feeding. Plan/Intensity of Service X-rays reviewed by myself, discussed with Dr. Jarrett and Dr. Diaz. Old record and current laboratory data reviewed. Discussed with nursing and nutrition. MICHAEL MARTINEZ APRN Oct 07, 2016 11:29 SADI NAVARRO MD Oct 07, 2016 16:14
--- NOTE | 2016-10-07 12:00 | NUR ---
MCKINLEY STAFF INSERTED A MCKINLEY CATHETER UPON THE THIRD ATTEMPT. PT TOLERATED THE TREATMENT WELL. A 16 COUDE CATHETER WAS INSERTED AND 350 CLEAR STRONG URINE NOTED. THIS WAS DONE UNDER STERILE TECHNIQUE.
[2016-10-07] MEDS: HYDROMORPHONE 2mg/ml INJECTION IV PRN ×3 (13:05→20:46)
--- NOTE | 2016-10-07 13:33 | DI ---
Indication: ITS.REASON: assess fracture PROCEDURE: PELVIS W/1 VIEW LT HIP: Encounter: Initial Comparison: June 21, 2016 Findings: Left femoral head replacement. There is a new oblique periprosthetic fracture of the lateral proximal left femoral diaphysis. This is mildly displaced. No additional acute fracture or dislocation is seen. No offset of the cortex visible on the crosstable lateral view. Impression: Closed posttraumatic periprosthetic fracture of the proximal left femoral diaphysis. .
--- NOTE | 2016-10-07 13:34 | DI ---
Indication: ITS.REASON: pRE-OP PROCEDURE: CHEST 1 VIEW: Encounter: Initial Comparison: 06/23/2016 Findings: Chronic scarring in the right upper lobe. The lungs are stable in appearance without new focal airspace consolidation. There is no pleural effusion or pneumothorax. The heart size, pulmonary vascularity and mediastinal contours are unchanged. IMPRESSION: Stable appearance of the chest without acute cardiopulmonary disease. .
[2016-10-07] MEDS ORDERED: MILK OF MAGNESIA 30 ML SUSP PEG PRN (16:00)
[2016-10-07] MEDS ORDERED: HYPROMELLOSE 2.5% BOTH EYES PRN (16:00)
[2016-10-07] MEDS ORDERED: GUAIFENESIN SYRUP 200 MG/10 ML PEG PRN (16:00)
--- NOTE | 2016-10-07 16:21 | NUR ---
Nutrition Risk R/T tube feeding Pt receives Jevity 1.5 saul/ml formula in bolus form at [facility] fiber equivalent is Fibersource HN which provides 1.2 saul/ml RD discussed pt's needs with Dr Navarro. Dr Navarro in agreement Tube feeding of Fibersource HN (1.2 saul/ml), 2 (250 ml) cans @ 7:00, 12:00, 17:00 and 22:00 with 75 ml free water before and 75 ml free water after each feeding. Nutrient contributions of the above order: CALORIES: 2400 calories PROTEIN: 108 gm protein FLUID: 1616 ml water (from feeding only) + 600 ml free water = 2216 ml of total fluids Patient's estimated nutrient needs: CALORIES: 2334 calories (Based on [address] Jeor with 1.2 activity factor and 1.2 injury factor) PROTEIN: 97 gm (Based on 1.3 gm/kg) FLUID: 2232 ml (Based on 30 ml/kg) Pt NPO after midnight for surgery 10/08/2016 RD available at ext [phone] or call FANS ext [phone]
--- NOTE | 2016-10-07 16:35 | NUR ---
PAIN Dilaudid 0.5 mg IV given by slow IV push for left leg pain rated high on the pain scale.
[2016-10-07] MEDS: NOZIN NASAL SWAB NS SCH (16:42)
[2016-10-07 16:48] VITALS: BP 115/67; PULSE 96; RESP 20; TEMP 99.9; O2SAT 93
--- NOTE | 2016-10-07 17:15 | NUR ---
TUBE FEEDING, PATIENT STATUS Tube feedings with Fibersource HN 1.2 started per gunner's mate m's recommendation and Dr Navarro's orders after explanation to the patient. HOB was at 20 degrees during the feeding as patient would not allow this RN to raise the bed further given the discomfort associated with his hip fracture. Patient has tolerated the slow bolus feed and free water well thus far. Heels are floated and patient has been repositioned as much as he will allow. Ice has been used to patient's tolerance to the left hip (he has declined it at times, stating "it's too cold", therefore removed for a short period of time and reapplied). Patient reports improvement in his hip discomfort after the last dose of Dilaudid.
--- NOTE | 2016-10-07 20:11 | NUR ---
FAMILY CALLED PT'S MOTHER/DPOA ARIADNE A COURTESY TO CONFIRM SHE KNEW WHAT TIME PT'S SURGERY WAS SCHEDULED. SHE SAID SHE WAS AWARE AND THEY WERE PLANNING ON ARRIVING AROUND [phone].
[2016-10-07 20:48] VITALS: BP 120/67; PULSE 102; RESP 20
[2016-10-07] MEDS: PROPRANOLOL 10 MG TABLET PEG SCH (21:31)
[2016-10-07] MEDS: GABAPENTIN 300 MG CAPSULE PEG SCH (21:31)
[2016-10-07] MEDS: LEVETIRACETAM 500 MG/5 ML PEG SCH (21:31)
[2016-10-08] VITALS (36 sets, daily range): BP systolic 67–107; BP diastolic 48–67; PULSE 86–119; RESP 12–21; TEMP 97.1–98.7; O2SAT 92–100
[2016-10-08] MEDS: NOZIN NASAL SWAB NS SCH ×3 (01:00→17:39)
[2016-10-08] MEDS: HYDROMORPHONE 2mg/ml INJECTION IV PRN ×4 (04:36→20:05)
--- NOTE | 2016-10-08 05:11 | NUR ---
SHIFT SUMMARY PATIENT IS ALERT AND ORIENTED X3 THIS SHIFT. VITAL SIGNS HAVE BEEN A LITTLE HYPOTENSIVE, OTHERWISE STABLE ON ROOM AIR. PATIENT HAS REMAINED ON BEDREST THIS SHIFT. PATIENT RECEIVED TWO TUBE FEEDINGS THIS SHIFT PER DR REQUEST; BOTH WERE TOLERATED WELL. PATIENT HAS BEEN NPO SINCE MIDNIGHT. FAMILY IS AWARE OF SURGERY TIME THIS AM AND PREOP CHECKLIST IS IN PROGRESS. WILL CONTINUE TO MONITOR.
[2016-10-08 05:53] LABS: BASOPHILS # (AUTO) 0.1 T/MM3 (0-0.2); BASOPHILS % (AUTO) 0.5 % (0-2); EOSINOPHILS # (AUTO) 0.2 T/MM3 (0-0.5); EOSINOPHILS % (AUTO) 1.9 % (0-4); HCT - HEMATOCRIT 29.6 % (41-53); HGB - HEMOGLOBIN 9.4 GM/DL (13.5-17.5); IMMATURE GRANULOCYTE # (AUTO) 0.01 T/MM3 (0.00-0.03); IMMATURE GRANULOCYTE % (AUTO) 0.1 % (0.0-0.5); LYMPHOCYTES # (AUTO) 1.9 T/MM3 (1-4.8); LYMPHOCYTES % (AUTO) 19.6 % (23-45); MEAN CORPUSCULAR HGB 27.9 UUG (26-34); MEAN CORPUSCULAR HGB CONC(MCHC 31.8 GM/DL (31-37); MEAN CORPUSCULAR VOLUME 87.8 UM3 (80-100); MEAN PLATELET VOLUME 11.8 UM3 (9.4-12.4); MONOCYTES # (AUTO) 1.3 T/MM3 (0-0.8); MONOCYTES % (AUTO) 13.4 % (0-9.0); NEUTROPHILS #(AUTO)-ABSOLUTE 6.3 T/MM3 (1.8-7.7); NEUTROPHILS % (AUTO) 64.5 % (33-66); RED BLOOD COUNT 3.37 M/MM3 (4.50-5.90); WBC - WHITE BLOOD COUNT 9.8 T/MM3 (4.5-11.0)
[2016-10-08 06:03] LABS: ANION GAP 9 MEQ/L (5-15); BUN/CREATININE RATIO 40 RATIO (6-26); CALCIUM 8.3 MG/DL (8.4-10.2); CHLORIDE 97 MEQ/L (98-107); CO2 - CARBON DIOXIDE 33 MEQ/L (22-30); CREATININE 0.5 MG/DL (0.8-1.5); GLOMERULAR FILTRATION RATE 173; GLUCOSE 114 MG/DL (75-110); POTASSIUM 4.4 MEQ/L (3.6-5); SODIUM 139 MEQ/L (134-144)
[2016-10-08] MEDS ORDERED: ROCURONIUM 50mg/5ml INJECTION IV ONE (06:59)
[2016-10-08] MEDS ORDERED: PROPOFOL 200mg 20 ML IV ONE (06:59)
[2016-10-08] MEDS ORDERED: LIDOCAINE 2% (20mg/ml) 5ml PF SDV ONE (06:59)
--- NOTE | 2016-10-08 07:06 | ANESPREOP ---
Anesthesia Record Date and Time DATE: 10/08/16 TIME: 07:04 Pre-Op Diagnosis Left Hip fracture Proposed Surgical Procedure Left Endoprosthesis NPO since: Midnight Allergies: Coded Allergies: No Known Drug Allergies (Verified Allergy, Unknown, 06/20/16) Ht/Wt/BMI Height: 6 ' 0.00 " Weight: 74.400 kg BMI: 22.3 kg/m2 Vital Signs Date Time Temp Pulse Resp B/P Pulse Ox O2 Delivery O2 Flow Rate FiO2 10/08/16 06:30 16 10/08/16 04:37 97.5 92 98/67 93 Room Air Medications Inpatient Medications Current Medications Medications (Trade) Dose Ordered Sig/Siav Start Time Stop Time Status Last Admin Dose Admin Ondansetron HCl (Zofran) 4 mg Q6H PRN 10/07/16 11:00 Morphine Sulfate (Morphine) 2 mg Q2H PRN 10/07/16 11:00 Hydromorphone HCl (Dilaudid) 0.5-1 mg IV Q1H PRN pain Q1H PRN 10/07/16 11:15 10/08/16 06:50 0.5 MG Acetaminophen/ Hydrocodone Bitart (Murray 7.5/325) 1-2 Tabs PO Q4H PRN Pain Q4H PRN 10/07/16 11:15 Multi-Ingredient Antiseptic (Nozin Nasal Swab) 1 each Q8HR 10/07/16 17:00 10/07/16 16:42 1 EACH Multi-Ingredient Antiseptic (Nozin Nasal Swab) 1 each PREOP PRN 10/07/16 11:15 10/07/16 23:59 DC Gabapentin (Neurontin) 300 mg TID 10/07/16 21:00 10/07/16 21:31 300 MG Guaifenesin (Robitussin) 200 mg Q4HR PRN 10/07/16 16:00 Acetaminophen/ Hydrocodone Bitart (Murray 10/325) 1 tab Q6H PRN 10/07/16 16:00 10/07/16 21:31 1 TAB Magnesium Hydroxide (Mom) 30 ml BID PRN 10/07/16 16:00 Paroxetine HCl (Paxil) 20 mg DAILY 10/08/16 09:00 Propranolol HCl (Inderal) 10 mg BID 10/07/16 21:00 10/07/16 21:31 10 MG Artificial Tears (Goniovisc) 1 drop PRN PRN 10/07/16 16:00 Levetiracetam (Keppra) 500 mg BID 10/07/16 21:00 10/07/16 21:31 500 MG Acetaminophen (Acetaminophen) 650 Mg/20.3 Ml Solution, 650 MG PEG Q6H PRN for PAIN/AIR HUNGER, (Reported) Last Taken: on 10/06/16 Diclofenac Sodium (Voltaren) 100 Gm Gel..gram., 1 APPLIC TOP TID, (Reported) Gabapentin (Gabapentin) 300 Mg Capsule, 300 MG PEG TID, (Reported) Last Taken: on 10/07/16 0400 Guaifenesin (Cough Syrup) 100 Mg/5 Ml Liquid, 10 ML PEG Q4HR PRN for COUGH, (Reported) Last Taken: on Unknown Date & Time Hydrocodone/Acetaminophen (Murray 10-325 Tablet) 10-325 Tablet, 1 TAB PEG Q6H PRN for PAIN, (Reported) Last Taken: on 10/07/16 Hypromellose (Isopto Tears) 150 Drop/15 Ml Drops, 1 DROP OP PRN, (Reported) Last Taken: on Unknown Date & Time Lactose-Reduced Food/Fiber (Jevity 1.5 Chris Liquid) 237 Ml Liquid, 270 ML PEG QID, (Reported) Last Taken: on 10/07/16 0600 Levetiracetam (Levetiracetam) 500 Mg/5 Ml Solution, 5 ML PEG BID, (Reported) Last Taken: on 10/07/16 0800 Magnesium Hydroxide (Milk of Magnesia) 400 Mg/5 Ml Oral.susp, 30 ML PEG BID PRN for CONSTIPATION/STOOL SOFTENING, (Reported) Last Taken: on 10/03/16 Menthol (Biofreeze) 118 Ml Gel..ml., 1 APPLIC TOP PRN, (Reported) Last Taken: on 10/06/16 1340 Paroxetine HCl (Paroxetine HCl) 20 Mg Tablet, 20 MG PO DAILY, (Reported) Last Taken: on 10/07/16 0800 Propranolol HCl (Propranolol HCl) 10 Mg Tablet, 10 MG PEG BID, (Reported) Last Taken: on 10/07/16 0800 Discontinued Medications Enoxaparin Sodium (Lovenox) 40 Mg/0.4 Ml Inj, 40 MG SQ Q24H Discontinued Reason: Medication Stopped Levetiracetam (Levetiracetam) 500 Mg Tablet, 500 MG PEG BID, (Reported) Last Taken: on 10/07/16 0700 Oxycodone HCl (Oxycodone HCl) 5 Mg Tablet, 5-15 MG PO Q3H PRN for PAIN Discontinued Reason: Medication Stopped Currently on Beta Rosa: Yes Beta Rosa Last Taken: 10/07/16 2100 Medical/Surgical History Anesthesia PMH: Reports: *Hypertension, CVA/Stroke/TIA (Left sided weakness), Denies: *CA, Asthma, Blood Transfusion Reac, CHF, COPD, Cancer, Seizures, Sleep Apnea Smoking Status: Former smoker Use Chewing Tobacco?: No Second Hand Exposure: No Substance Use Type: does not use Alcohol Intake: former alcohol drinker Past Surgical History Orthopedic Surgeries: Yes - L HIP HEMIARTHOPLASTY (06/21/16) Abdominal Surgeries: Yes - HERNIA REPAIR, FEEDING TUBE Genitourinary Surgeries: No Cardiac Surgeries: No Endocrine Surgeries: No Reproductive Surgeries: No Neurological Surgeries: No Ear Surgeries: No Nose Surgeries: No Throat Surgeries: No Other Surgeries: No Anesthesia Adverse Reactions: FOUND none Family Hx of Anesthesia Advers: none Hx of Motion Sickness: No Pertinent Findings Laboratory Tests 10/08/16 04:48 Test 10/07/16 11:16 Prothromb Time International Ratio 1.25 (0.76-1.04) EKG Rhythm: Sinus Rhythm Physical Exam Respiratory: Lungs clear Cardiovascular: FOUND Regular rate, rhythm Airway Assessment Mallampati Score: II TMD: 3 Fingerbreadths Neck Extension: Good Overall Assessment: No Airway Concerns ASA: 3 Plan Anesthesia Plan: GETA Discussion Discussed risks/options/alternatives of anesthesia and questions answered. Patient consents. Nursing pain assessment noted. Attestation Statement Prior to the delivery of any anesthetic medication, I examined the patient, developed the plan, obtained the patient's consent and discussed the risk and benefits of the procedure with the patient/guardian. DAMIEN ROY CRNA Oct 08, 2016 07:06
[2016-10-08] MEDS ORDERED: CEFAZOLIN 1 GRAM INJECTION ONE ×3 (07:20→09:28)
[2016-10-08] MEDS ORDERED: FENTANYL 250mcg/5ml INJECTION ONE (07:45)
[2016-10-08] MEDS ORDERED: EPINEPHRINE 0.25 MG, BUPIVACAINE 0.25% 75 MG, MORPHINE SULFATE 15 MG, KETOROLAC 60 MG i... INJ ONE ×5 (07:45)
[2016-10-08] MEDS ORDERED: DEXAMETHASONE 4mg/ml - 1ml INJECTION ONE (07:56)
[2016-10-08] MEDS ORDERED: ONDANSETRON 4mg/2ml INJECTION ONE (07:56)
[2016-10-08] MEDS ORDERED: PHENYLEPHRINE 10mg/ml INJECTION ONE (08:03)
[2016-10-08] MEDS ORDERED: VANCOMYCIN 1 GRAM INJECTION ONE (08:04)
[2016-10-08] MEDS ORDERED: TRANEXAMIC ACID 1,000 MG in NORMAL SALINE 100 ML TOP SCH (08:15)
[2016-10-08] MEDS ORDERED: CEFAZOLIN 1 GRAM INJECTION IV ONE (08:15)
[2016-10-08] MEDS: PROPRANOLOL 10 MG TABLET PEG SCH (09:00)
[2016-10-08] MEDS ORDERED: PAROXETINE 20 MG TABLET PO SCH (09:00)
[2016-10-08] MEDS: GABAPENTIN 300 MG CAPSULE PEG SCH ×3 (09:00→21:18)
[2016-10-08] MEDS: LEVETIRACETAM 500 MG/5 ML PEG SCH ×2 (09:00→21:17)
[2016-10-08] MEDS ORDERED: CEFAZOLIN 2 G in NORMAL SALINE 100 ML IV ONE (09:30)
[2016-10-08] MEDS ORDERED: DESFLURANE 240 ML LIQUID IH ONE (09:53)
[2016-10-08] MEDS ORDERED: METOCLOPRAMIDE 10mg/2ml INJECTION IV PRN (10:45)
[2016-10-08] MEDS ORDERED: ONDANSETRON 4mg/2ml INJECTION IV PRN (10:45)
[2016-10-08] MEDS ORDERED: HYDROMORPHONE 2mg/ml INJECTION IV PRN (10:45)
--- NOTE | 2016-10-08 10:58 | PDPROCED ---
Immediate Operative Note DATE: 10/08/16 TIME: 10:56 Preop Diagnosis: Left hip periprosthetic hip fracture Postop Diagnosis: Left hip periprosthetic hip fracture Surgical Procedures: Other (revision left hip endoprosthesis with ORIF and cableing of periprosthestic fracture.) Surgeon: Joe Irrigator Gravity Flow: Other (Dr. Driver speech therapy assistant.) Anesthesia: General Complications: none Estimated Blood Loss see anesthesia record MENA RAINES Oct 08, 2016 10:58
[2016-10-08] MEDS ORDERED: BISACODYL 10 MG SUPPOSITORY RECTALLY PRN (11:00)
--- NOTE | 2016-10-08 11:05 | NUR ---
PACU UNABLE TO PALPATE LEFT PEDAL PULSE. STRONG PEDAL PULSE NOTED ON DOPPLER.
--- NOTE | 2016-10-08 11:48 | NUR ---
VLAD THIS WORKER MET WITH MOTHER OF PT AT THIS TIME. PT WAS STILL IN RECOVERY FROM PROCEDURE. MOTHER REPORTED THAT THE PLAN WOULD BE FOR PT TO RETURN TO [facility] AT TIME OF DISCHARGE. MOTHER REPORTED THAT HE HAS BEEN THERE FOR ABOUT 3 MONTHS. THIS WORKER WROTE NAME ON WHITEBOARD IN ROOM. CASE MANAGEMENT WILL CONTINUE TO FOLLOW AND ASSIST IN DISCHARGE PLANNING.
--- NOTE | 2016-10-08 11:50 | OPNOTEF ---
DATE 10/08/2016 PREOPERATIVE DIAGNOSIS Comminuted left proximal femoral periprosthetic fracture. POSTOPERATIVE DIAGNOSIS Comminuted left proximal femoral periprosthetic fracture, with unstable femoral endoprosthesis stem. PROCEDURE Left hip revision hemiarthroplasty with fixation, comminuted proximal femur fracture. SURGEON Jayro Diaz MD ELEMENTARY READING TUTOR Andi Driver MD SECOND ELEMENTARY READING TUTOR DAVID Herrmann ANESTHESIA General. FLUIDS Approximately 2500 of crystalloid. EBL Approximately 200. COMPLICATIONS None. CONDITION Stable to recovery room. IMPLANTS 1. [place] yazdanism modular system with hip stem length 195 x 19, body size 25-mm, +0 height, V40 taper, with standard offset neck adjustment sleeve, and 53-mm endoprosthetic head component. 2. [email or web address]Link[employer] 2.0 mm cables x3. DESCRIPTION OF PROCEDURE The patient was identified in the preoperative holding area. The operative extremity was identified and appropriately marked. The risks, benefits, alternatives, and potential complications were discussed and informed consent was obtained. The patient was taken to the operating theatre, placed supine on the operating table. Appropriate cardiorespiratory monitors were applied. General anesthesia was administered. A pegboard was under the patient. He was positioned in a lateral decubitus position with the operative left upper extremity upwards. He was secured to the pegboard with pegs, which were all carefully padded. An axillary roll was placed as well. The left lower extremity was then carefully prepped and draped in the usual fashion. Surgical time-out was performed, confirmed with myself, the departmental shipping clerk, and circulating nurse. Preoperative antibiotics had been given. The patient's previous incision from prior hip surgery was identified and marked with a surgical marking pen. The skin was then incised through the subcutaneous fat. Electrocautery was used for hemostasis as necessary. Tissue planes were identified through old scar tissue. The IT band was identified and split longitudinally extending back to the gluteal fascia. This was bluntly dissected posteriorly through the gluteus laurel musculature. This revealed the underlying fascia. A Charnley retractor was placed to hold back the gluteal fascia and the IT band. At this time, a copious amount of mature hematoma was identified. This was removed from this area and then the area was copiously lavaged with pulsatile irrigation. The patient's old sutures from his prior capsulotomy were identified, and these were sharply removed. Sutures also from the posterior aspect of the greater trochanter from repair of his external rotators were identified, cut, and removed as well. The capsulotomy was then recreated as well as releasing the scarred and soft tissue of the external rotators off the posterior aspect of the femur. The hip was then positioned for dislocation, and the stem was able to be completely removed en bloc. Inspection of the stem showed that there had been bony ongrowth laterally on the stem. The fracture was then identified as a long greater tuberosity and lateral diaphyseal fragment with a comminuted calcar lesser trochanter piece. The edges of the fracture were identified, and the incision was extended distally to reveal the apex of the lateral greater tuberosity fragment. The hip was then placed in a 90 position for preparation of the femur. Retractors were placed. The [employer] yazdanism modular system was used. We sequentially reamed for distal canal fit. We were able to ream to the 255-mm range and reamed up to a 19 mm, which felt to have good fit. Fluoroscopy was utilized to confirm good canal fit distally. We elected to proceed with this. At this time with this broach remaining intact, we elected to proceed with fixation of the larger lateral fragment distally. Two 2.0-mm D[place]-Miles cables were carefully passed around the femur making sure to maintain contact with bone at all times with the wire passers. These were then provisionally tightened and secured with clamps, which anatomically reduce the distal portion of the fracture. At this time, we checked our reaming again as well as position with fluoroscopy and confirmed overall good alignment and good prosthetic fit. Proximal reaming and sizing for the body then was performed. We then inserted trials with a standard head and a 53-mm head and did a trial reduction. This provided overall good length and stability and good motion. The hip was then dislocated again. At this time, the trial body was removed. A third cerclage wire was placed just above the lesser trochanter on the major calcar fragment, positioned carefully, and then tightened. It was provisionally tightened, and then we rereamed for the body to remove any new obscuring bone from this previously displaced fragment. We then inserted the stem component again confirming position with fluoroscopy. This was followed by placement of the body with appropriate version. This was then securely screwed. The trial head was then again replaced, and the head was again reduced. Again we noted good stability, good leg length, and overall good mobility. The hip was then again dislocated. The Yang taper was cleaned and dried, and the muscogee head was then placed. Throughout this procedure, there was copious irrigation of all layers of the wound including the acetabulum, which was carefully inspected for any loose bodies. At this time, the hip was reduced again noting good stability. Betadine solution was poured into the wound and allowed to stand for 3 minutes. This was then irrigated out with a liter of pulsatile lavage. The capsule was injected with Dr. Driver's standard cocktail as were the skin edges and subcutaneous tissues. Tranexamic acid was then poured into the wound and allowed to sit for 1 minute as well. This was followed by careful closure of the capsule with interrupted [id number] #5 Ethilon sutures. Piriformis and short external rotators were then repaired through bone holes in the posterior aspect of the greater trochanter near the piriformis fossa. Additional suturing of the posterior aspect of the vastus lateralis, which was released for reduction of the fracture, was reapproximated with #1 Vicryl sutures. This layer was then again copiously irrigated. Then, #1 PDS sutures were passed in a [id number] fashion for closure of the IT band. The gluteal fascia was closed with running #1 Vicryl. Vancomycin powder was placed just outside of this level. Subcutaneous tissues were then closed with interrupted inverted 2-0 Vicryl, and skin closed with running Monocryl Quill suture. Sterile dressings were then applied. The patient was then transferred back to a supine position and back to his hospital bed where he was extubated. He was taken to the recovery room in stable and satisfactory condition. VICTORIA
--- NOTE | 2016-10-08 12:05 | NUR ---
LOW BP Onofre ROY CRNA NOTIFIED OF LOW BP AND LOW URINE OUTPUT. PT BP STABLE IN THE 80S/50S AND PT DROWSY AND CONFUSED BUT RESPONSIVE. Onofre ROY CRNA AUTHORIZED TRANSFER TO FLOOR.
--- NOTE | 2016-10-08 12:08 | NUR ---
FROM OR Returns from OR after this RN received report from ENTRY LEVEL SOFTWARE ENGINEER.
--- NOTE | 2016-10-08 12:15 | NUR ---
DISCUSSION WITH [employer] Eric APRN is at bedside, reported urine output total 60 ml between OR and PACU, current BP/status, and that anesthesia used medications to bump his blood pressure intraoperatively. EBL was 200 ml.
--- NOTE | 2016-10-08 12:25 | NUR ---
HYPOTENSION Patient is awake, mumbling, hypotensive with palpable but weak radial pulses. Skin is pale, pt is not particularly clammy. Dr Navarro and Jeaneth DUTTON are at the bedside after this RN called Dr Navarro upon the finding of hypotension. A fluid bolus of 500 ml was started, and lab called. Lab is at bedside drawing. Manual BP check is 78/54, correlates with NIBP findings.
[2016-10-08] MEDS ORDERED: NORMAL SALINE 500 ML IV SCH (12:30)
[2016-10-08] MEDS ORDERED: NORMAL SALINE 1,000 ML IV SCH ×2 (12:30→19:00)
[2016-10-08 12:34] LABS: HCT - HEMATOCRIT 22.9 % (41-53); HGB - HEMOGLOBIN 7.4 GM/DL (13.5-17.5)
--- NOTE | 2016-10-08 12:37 | NUR ---
POST OP ANEMIA Notified Dr Navarro of current vital signs and current H&H, 7.4, 22.9. One unit of PRBCs ordered.
--- NOTE | 2016-10-08 12:41 | NUR ---
BLOOD BANK NOTIFIED Blood bank notified of need for one unit of blood to transfuse. Family is also at bedside and mom (DPOA) and patient made aware of the orders for transfusion. Patient is drowsy and not tracking well, mom verbalizes understanding and agrees to proceed with the transfusion.
--- NOTE | 2016-10-08 12:57 | NUR ---
STATUS Still hypotensive, 82/54, somewhat clammy, sats 100% on 2L/NC, RR WNL. Rests with eyes open and intermittently lifts head off of bed and talks. Palpable radial pulses, but weak. Mentions that his hip hurts a lot. Discussed how we would like to give him medication for his pain but are unable to do so at this time due to his blood pressure. Will discuss with Dr Navarro.
[2016-10-08] MEDS: NORMAL SALINE 1,000 ML IV SCH ×2 (13:00→22:12)
--- NOTE | 2016-10-08 13:16 | PNPDOC ---
MICHAEL MARTINEZ V CONTACT CENTRE SUPERVISOR 10/08/16 1308: Subjective Date DATE: 10/08/16 TIME: 13:04 Subjective Héctor is seen post-operatively following urgent call from patients nurse. It was reported that patient was hypotensive and questionable bradycardic. On examination Héctor villalobos is found laying in be, He is alert and talking. He is noted to be hypotensive at 72 systolic with pulse initially 114. He smiles and complains of left hip pain on examination. He is currently on 2 liters of oxygen by nasal canula. EBL during surgery is reported approximately 200ml. Objective Vital Signs Vital signs Vital Signs Date Time Temp Pulse Resp B/P Pulse Ox O2 Delivery O2 Flow Rate FiO2 10/08/16 12:07 97.1 10/08/16 12:06 115 18 81/60 96 Nasal Cannula 2.00 Height (Feet): 6 Height (Inches): 0.00 Weight (Kilograms): 74.400 General General Appearance: Alert, Cooperative, No Acute Distress Eyes (Brief) Eyes: FOUND: EOMI ENMT (Brief) ENMT: FOUND: mucosa moist, normal dentition, NOT FOUND: pharnyx erythema Neck (Brief) Neck: FOUND: midline, NOT FOUND: adenopathy, carotid bruits, tracheal deviation Respiratory (Brief) Respiratory: FOUND: clear all silver, equal bilaterally, NOT FOUND: wheezes Cardiovascular (Brief) Cardiac: FOUND: regular rhythm, NOT FOUND: murmur, pedal edema Capillary Refill: <2 sec Comments Tachycardia- 110-115 Abdomen (Brief) Abdominal: FOUND: BS normo active x4, soft, NOT FOUND: distended, tender Lymphatic (Brief) Lymphatic: NOT FOUND: adenopathy Musculoskeletal (Brief) Musculoskeletal: FOUND: tenderness (Post-op left hip pain) Integumentary (Brief) Integumentary: FOUND: dry, pink, warm Neurologic (Brief) Neurological: FOUND: cranial 2-12 intact Psychiatric (Brief) Psychiatric: FOUND: alert, attentive, normal affect, oriented Laboratory Laboratory Laboratory Tests 10/07/16 11:15 10/08/16 04:48 Laboratory Tests 10/07/16 11:15 10/08/16 04:48 10/08/16 12:26 Assessment & Plan Problems: (1) Periprosthetic fracture around internal prosthetic left hip joint, initial encounter Status: Acute (2) HTN (hypertension) Status: Chronic (3) Hemiparesis affecting left side as late effect of cerebrovascular accident ( CVA) Onset Date: 04/27/2016 Status: Chronic (4) Dysphagia following cerebrovascular accident (CVA) Onset Date: 04/27/2016 Status: Chronic (5) Anemia Status: Chronic (6) Gait instability Status: Chronic (7) Chronic constipation Status: Chronic (8) Hypotension Status: Acute (9) Postoperative anemia Status: Acute Plan/Intensity of Service 10/08/16 Given acute hypotension post-operatively. Will given 500 ML NS W/O pressure bag. Then continues NS at 125 ml/hr. Monitor weight and respiratory status given amount of IV fluid he received during surgery. Monitor for fluid overload. Stat H&H is obtained and Hgb was found to be 7.4. Crossmatch 1 unit of packed RBC to transfuse now. Will continue to follow serial Hgb closely. Will place Inderal on hold given hypotension. [place] as needed for pain control. Will need to ender caution with IV narcotics given Hypotension. Orthopedic care as per Dr Diaz Patient will require 30 days of post-op anticoagulation. Scheduled to start Lovenox this evening. Will discuss further plan of care with attending, Dr Navarro Code Status Full Code Hospital Course Summary Disclaimer The hospital course summary below is not to be considered part of the above Progress Note. Hospital Course Summary Admit patient to inpatient status under the care of Dr. Navarro for fall with acute periprosthetic fracture of the left hip. Consultation is placed to Dr. Diaz and the orthopedic team for further with evaluation and treatment. Medical screening including CBC, BMP, urinalysis, EKG and chest x-ray. IV lock in place for pain control NPO with Tube feedings only. Tube Feeding management including Jevity 1.5 calorie, 270 mL 5 times a day, and 60 ML before and after each feeding of free water. Total free water will be 600 ml/24 hr. Will continue to use [place] 10 mg that he chronically uses for pain however will also have IV morphine available for acute breakthrough pain. At midnight we will make patient nothing by mouth for probable surgery tomorrow 10/08. Continue with Keppra 500mg BID for seizure prophylaxis. Will monitor post-op CBC routinely to evaluation for postop anemia At time of discharge medical care is to return to PCP Dr Jarrett 10/08/16 Given acute hypotension post-operatively. Will given 500 ML NS W/O pressure bag. Then continues NS at 125 ml/hr. Monitor weight and respiratory status given amount of IV fluid he received during surgery. Monitor for fluid overload. Stat H&H is obtained and Hgb was found to be 7.4. Crossmatch 1 unit of packed RBC to transfuse now. Will continue to follow serial Hgb closely. Will place Inderal on hold given hypotension. [place] as needed for pain control. Will need to ender caution with IV narcotics given Hypotension. Orthopedic care as per Dr Diaz Patient will require 30 days of post-op anticoagulation. Scheduled to start Lovenox this evening. Will discuss further plan of care with attending, SADI Richards MD 10/08/16 2633: Assessment & Plan Assessment I have independently evaluated and examined this patient. I reviewed the chart, the patient's history, and the CONTACT CENTRE SUPERVISOR's documented findings as above. We discussed and formulated the assessment and plan as above with additions as below: Patient seen acutely for postoperative hypotension and tachycardia. Patient was verbally responsive at the time as noted above. Reevaluated several hours later with blood infusing at which time blood pressure remains borderline with mean blood pressure the proximally 70 (range 64-72 over the past 3 hours) and borderline tachycardia. Radial pulses are strong. The patient is sleeping on reassessment after administration of IV Dilaudid which blood pressure tolerated. He is on 1 L supplemental oxygen. Respirations are nonlabored with clear lung silver anteriorly. Cardiac rhythm is regular. There is a general trend for improvement in blood pressure since transfusion has been initiated. Family members at bedside reports a large hematoma was evacuated and the operating room and hemoglobin has dropped 3 mg/dL from admission value. Hemoglobin will be reassessed following initial unit of blood and may require further transfusion. Preop blood pressure this morning was 98/67 and on admission yesterday blood pressure was 109/72. At this time I don't believe there is a need to initiate pressors but will require close monitoring and could require transfer to unit if pressures do not stabilize with blood/volume. Up note indicates that patient was given 2500 mL of crystalloid and he received a 500 mL bolus normal saline on return to the floor with continued fluids at this time. Plan/Intensity of Service Hemodynamically unstable postoperatively, worsening anemia. Supplemental history provided by family/nursing. Postoperative hip film viewed by myself and chest x-ray ordered for tomorrow morning. Laboratory data reviewed. MICHAEL MARTINEZ V CONTACT CENTRE SUPERVISOR Oct 08, 2016 13:08 SADI NAVARRO MD Oct 08, 2016 16:23
--- NOTE | 2016-10-08 13:28 | NUR ---
DISCOMFORT, DR SHEPHERD Reported uncontrolled pain to Dr Navarro, and current blood pressure 80/53 along with patient status. Ordered to try 0.5 mg IV Dilaudid by slow IV push. Blood transfusion is pending.
--- NOTE | 2016-10-08 13:55 | NUR ---
PRESSURES Two subsequent pressures in the 85 systolic range. Dilaudid given by slow IV push for pain. Pain rests after reporting pain at 10/10. Mom and stepdad remain at bedside, blood pending. This RN is being called back to CCU for an admission, will give report to receiving RN.
--- NOTE | 2016-10-08 16:53 | NUR ---
RESPIRATORY RESPIRATORY IN ROOM INSTRUCTING THE PATIENT ON HOW TO USE HIM INCENTIVE SPIROMETER. PT UNABLE TO COMPREHEND INSTRUCTIONS AT THIS TIME.
[2016-10-08 17:36] LABS: HGB - HEMOGLOBIN 8.3 GM/DL (13.5-17.5)
[2016-10-08] MEDS: CEFAZOLIN 1 G in NORMAL SALINE 100 ML IV SCH (17:38)
--- NOTE | 2016-10-08 19:00 | NUR ---
STATUS PT RESTED WELL FOR STAFF SINCE RETURN FROM SURGERY. PT'S BLOOD PRESSURE CONTINUES TO [place] IN THE 70'S AND 80'S SYSTOLIC. DR. LUNSFORD INFORMED OF THIS INFORMATION. PT GIVEN BOLUS FOR LOW BLOOD PRESSURE AND DECREASED OUTPUT. PT DOES HAVE SOME COMPLAINTS OF PAIN TODAY, HOWEVER WITH PAIN MEDICATION BLOOD PRESSURES LOW STAFF CONTINUES TO MONITOR BOTH PAIN AND BLOOD PRESSURES. PT DOES IS VERY AWARE OF HIS CALL LIGHT PLACEMENT AND KNOWS HOW TO USE IT TO GET A HOLD OF STAFF. PT SETTLED AT THIS TIME. DRESSING REMAINS CLEAN, DRY, AND INTACT. PT ON 1L OF O2 AT THIS TIME. STAFF TO MONITOR THE PATIENT.
[2016-10-08 21:16] LABS: BLOOD, URINE NEGATIVE (NEGATIVE); COLOR,URINE YELLOW (YELLOW); LEUKOCYTE ESTERASE ,URINE NEGATIVE (NEGATIVE); NITRITE,URINE NEGATIVE (NEGATIVE); UROBILINOGEN,URINE 0.2 EU/DL (NORMAL)
[2016-10-08] MEDS: ENOXAPARIN 40 MG/0.4 ML INJECTION SQ SCH (21:18)
[2016-10-09] VITALS (8 sets, daily range): BP systolic 98–115; BP diastolic 52–66; PULSE 99–118; RESP 16–18; TEMP 98.5–99.2; O2SAT 94–97
[2016-10-09] MEDS: CEFAZOLIN 1 G in NORMAL SALINE 100 ML IV SCH (00:21)
[2016-10-09] MEDS: NOZIN NASAL SWAB NS SCH ×3 (00:21→16:48)
--- NOTE | 2016-10-09 02:43 | NUR ---
Chart Check 24 hour chart check completed
--- NOTE | 2016-10-09 05:04 | ANESPO ---
Post-Op Note Date 10/08/16 Time: 11:45 Status Pt Participated in Evaluation: Pt participated in person Vital Signs Date Time Temp Pulse Resp B/P Pulse Ox O2 Delivery O2 Flow Rate FiO2 10/09/16 04:20 99.2 100 18 113/66 96 Nasal Cannula 2.00 Respiratory Function: Airway patent Cardiovascular Function: Regular pulse Telemetry Pattern: SR Mental Status: Alert/oriented Pain Level Intensity: 4 Unable to Assess Pain Due To: Pt Sleeping Hydration: IV infusing Complications during Recovery None apparent Follow-Up Instructions Instructions Per Surgeon DAMIEN ROY CRNA Oct 09, 2016 05:04
[2016-10-09 05:16] LABS: HCT - HEMATOCRIT 21.5 % (41-53); MEAN CORPUSCULAR HGB 29.2 UUG (26-34); MEAN CORPUSCULAR HGB CONC(MCHC 32.6 GM/DL (31-37); MEAN CORPUSCULAR VOLUME 89.6 UM3 (80-100); MEAN PLATELET VOLUME 11.8 UM3 (9.4-12.4); WBC - WHITE BLOOD COUNT 12.8 T/MM3 (4.5-11.0)
[2016-10-09 05:23] LABS: ANION GAP 7 MEQ/L (5-15); BUN/CREATININE RATIO 46 RATIO (6-26); CALCIUM 7.6 MG/DL (8.4-10.2); CHLORIDE 104 MEQ/L (98-107); CO2 - CARBON DIOXIDE 26 MEQ/L (22-30); CREATININE 0.5 MG/DL (0.8-1.5); GLOMERULAR FILTRATION RATE 173; GLUCOSE 137 MG/DL (75-110); POTASSIUM 4.9 MEQ/L (3.6-5); SODIUM 137 MEQ/L (134-144)
--- NOTE | 2016-10-09 05:38 | NUR ---
STATUS PATIENT 'S VITAL SIGN STABLE. PATIENT'S BLOOD PRESSURE CONTINUES TO [place] IN THE 90'S AND 100S SYSTOLIC. ON 2L O2 VIA NC. WATER AND FIBER SOURCE WAS GIVEN THROUGH PEG TUBING .PATIENT TOLERATED WELL .NO C/O CHEST PAIN,SOA,OR N/V. PRN DILAUDID WAS GIVEN FOR PAIN.PATIENT WAS ABLE TO SLEEP AFTER PAIN MED GIVEN. PATIENT WOKE UP AFTER LAB TO DRAW BLOOD. PATIENT STARTED TO PUT CALL LIGHTS TO ASK QUESTIONS AND WANTED TO CALL HIS MOM CONSISTENTLY. PRN NORCO 10 WAS GIVEN PER PAIN. MCKINLEY CATHETER WAS PATENT DRAINING WELL . BED ALARM ON.CALL LIGHT WITHIN REACH.CONTINUE TO MONITOR.
[2016-10-09 06:09] LABS: BAND NEUTROPHILS # 0.6 T/MM3; LYMPHOCYTES # (MANUAL) 1.5 T/MM3 (1-4.8); MONOCYTES # (MANUAL) 0.6 T/MM3 (0-0.8); TOTAL CELLS COUNTED 100 %
[2016-10-09] MEDS: NORMAL SALINE 1,000 ML IV SCH ×3 (07:24→21:12)
[2016-10-09] MEDS: LEVETIRACETAM 500 MG/5 ML PEG SCH ×2 (09:09→21:14)
[2016-10-09] MEDS: PAROXETINE 20 MG TABLET PEG SCH (09:11)
[2016-10-09] MEDS: GABAPENTIN 300 MG CAPSULE PEG SCH ×3 (09:11→21:14)
--- NOTE | 2016-10-09 09:42 | PDORTHOPN ---
Subjective Date DATE: 10/09/16 TIME: 09:37 Subjective POD1 sp revision left hip endo for jose-prosthetic fx Doing well. BPs have continued to run low with ABLA. Had large hematoma at time of surgery which was removed. Order for 1U of PRBCs today. Patient otherwise doing well. Still some pain but improved from pre-op and from post op last night. No other complaints Objective Vital Signs Vital signs Vital Signs 10/09/16 10/09/16 10/09/16 10/09/16 00:28 04:20 07:58 08:06 Temp 98.5 99.2 98.9 Pulse 100 100 109 109 Resp 18 18 18 B/P 102/64 113/66 105/62 Pulse Ox 97 96 97 O2 Delivery Nasal Cannula Nasal Cannula Nasal Cannula O2 Flow Rate 2.00 2.00 1.00 Height (Feet): 6 Height (Inches): 0.00 Weight (Kilograms): 81.900 General General Appearance: Alert, Orientated x 3, Well Nourished, Well Developed, No Acute Distress Respiratory (Brief) Respiratory Brief: FOUND: clear all silver Cardiovascular (Brief) Cardiac: FOUND: calf easily compressible, calf soft, nontender, pedal pulses intact, regular rate, regular rhythm Capillary Refill: <2 sec Abdomen (Brief) Abdominal Brief: FOUND: non-distended, non-tender, soft Musculoskeletal (Brief) Hip: FOUND painful PROM, NOT FOUND unequal leg length Musculoskeletal Brief: FOUND: tenderness Surgical Site Incision: FOUND: Mepilex dressing intact, clean, dry, intact, no drainage Integumentary (Brief) Integumentary Brief: FOUND dry, FOUND pink, FOUND warm Neurologic (Brief) Neurological Brief: FOUND: neuro intact Psychiatric (Brief) Psychiatric Brief: FOUND: alert, oriented Laboratory Laboratory Laboratory Tests 10/07/16 11:15 10/08/16 04:48 10/08/16 12:26 10/08/16 17:25 10/09/16 04:07 Laboratory Tests 10/07/16 11:15 10/08/16 04:48 10/09/16 04:07 Assessment & Plan Problems: (1) Periprosthetic fracture around internal prosthetic left hip joint, initial encounter Status: Acute Assessment & Plan: POD1 sp left hip endo revision Continue pain control ABLA-getting another unit of PRBCs today Protect WB to non on operative extremity Hospital Course Summary Disclaimer The visit summary below is not to be considered part of the above Progress Note. Hospital Course Admit patient to inpatient status under the care of Dr. Navarro for fall with acute periprosthetic fracture of the left hip. Consultation is placed to Dr. Diaz and the orthopedic team for further with evaluation and treatment. Medical screening including CBC, BMP, urinalysis, EKG and chest x-ray. IV lock in place for pain control NPO with Tube feedings only. Tube Feeding management including Jevity 1.5 calorie, 270 mL 5 times a day, and 60 ML before and after each feeding of free water. Total free water will be 600 ml/24 hr. Will continue to use Riley 10 mg that he chronically uses for pain however will also have IV morphine available for acute breakthrough pain. At midnight we will make patient nothing by mouth for probable surgery tomorrow 10/08. Continue with Keppra 500mg BID for seizure prophylaxis. Will monitor post-op CBC routinely to evaluation for postop anemia At time of discharge medical care is to return to PCP Dr Jarrett 10/08/16 Given acute hypotension post-operatively. Will given 500 ML NS W/O pressure bag. Then continues NS at 125 ml/hr. Monitor weight and respiratory status given amount of IV fluid he received during surgery. Monitor for fluid overload. Stat H&H is obtained and Hgb was found to be 7.4. Crossmatch 1 unit of packed RBC to transfuse now. Will continue to follow serial Hgb closely. Will place Inderal on hold given hypotension. Riley as needed for pain control. Will need to ender caution with IV narcotics given Hypotension. Orthopedic care as per Dr Diaz Patient will require 30 days of post-op anticoagulation. Scheduled to start Lovenox this evening. Will discuss further plan of care with attending, Dr Ramon DIAZ,JOHN Reynoso MD Oct 09, 2016 09:41
[2016-10-09] MEDS: HYDROCODONE-APAP 2.5mg-108mg/5ml ELIXIR PEG PRN ×3 (10:27→21:28)
--- NOTE | 2016-10-09 10:33 | DI ---
Indication: ITS.REASON: hypoxia PROCEDURE: CHEST 1 VIEW: Encounter: Initial Comparison: October 07, 2016 Findings: Lungs are stable with right apical scarring. No pleural effusion, pneumonia or pneumothorax. Cardiomediastinal contours are stable. Impression: Stable chest without acute cardiopulmonary disease. .
--- NOTE | 2016-10-09 10:36 | DI ---
Indication: ITS.REASON: assess prosthesis PROCEDURE: AP and Lateral views of the Left Femur Encounter: Initial Comparison: June 20, 2016 Findings: Revision of the left femoral prosthesis with two cerclage wires. No evidence of prosthetic loosening or failure. The proximal aspect is not fully included on the [id number]. No visible fracture on this study. Impression: Findings as above. .
--- NOTE | 2016-10-09 10:37 | DI ---
Indication: ITS.REASON: assess prosthesis PROCEDURE: PELVIS 1-2 VIEW DEDICATED PELV: Encounter: Initial Comparison: October 07, 2016 Findings: Revision of the left femoral prosthesis with a new extended component and three cerclage wires. Improved alignment of the fracture fragments. No new fracture or dislocation. No evidence of hardware failure. Impression: Revision of the left femoral hardware as above. .
--- NOTE | 2016-10-09 10:42 | DI ---
Indication: ITS.REASON: LEFT HIP REVISION PROCEDURE: RF HIP LEFT 2 VIEW: Encounter: Initial Comparison: Pelvis radiograph dated October 07, 2016 Findings: Three fluoroscopic spot images are submitted for interpretation. Images show revision of the left femoral prosthesis with placement of three cerclage wires. Impression: Fluoroscopy as above. Fluoroscopy time is 37 seconds. Fluoroscopy dose is 530 mRad. .
[2016-10-09 13:59] LABS: HGB - HEMOGLOBIN 6.7 GM/DL (13.5-17.5)
--- NOTE | 2016-10-09 14:41 | PNPDOC ---
Subjective Date DATE: 10/09/16 TIME: 13:34 Subjective Mr. Valencia reports he got little sleep over night and complained of hip pain when seen. Blood pressure stabilized overnight and urine output improved per nursing report. The patient denies dyspnea or cough and has had no chest pain or palpitations. He describes some minor nausea. He reports he's been a little bit lightheaded and that his left foot is numb today. Nursing reports low-grade fever overnight. Objective Vital Signs Vital signs Vital Signs Date Time Temp Pulse Resp B/P Pulse Ox O2 Delivery O2 Flow Rate FiO2 10/09/16 11:59 98.9 118 16 98/52 94 Room Air 10/09/16 07:58 1.00 I/O 6068/490 EXAM General-NAD, alert, cooperative, fluent speech HEENT-conjunctiva clear, EOMI Lungs-respirations nonlabored, good airflow, anterior lung silver clear Cardiac-regular rhythm, S1-S2 Abd-soft, nontender, bowel sounds present Ext-without edema Neuro-left hemiparesis, sensation intact to light touch/cold bilateral shins Psych-calm Height (Feet): 6 Height (Inches): 0.00 Weight (Kilograms): 81.900 Laboratory Laboratory Laboratory Tests 10/08/16 04:48 10/09/16 04:07 Laboratory Tests 10/08/16 04:48 10/08/16 12:26 10/08/16 17:25 10/09/16 04:07 Assessment & Plan Problems: (1) Periprosthetic fracture around internal prosthetic left hip joint, initial encounter Status: Acute (2) Hypotension Status: Acute Assessment & Plan: Postop (3) Postoperative anemia Status: Acute (4) Hemiparesis affecting left side as late effect of cerebrovascular accident ( CVA) Onset Date: 04/27/2016 Status: Chronic (5) Dysphagia following cerebrovascular accident (CVA) Onset Date: 04/27/2016 Status: Chronic (6) Anemia Status: Chronic (7) Gait instability Status: Chronic (8) Chronic constipation Status: Chronic (9) HTN (hypertension) Status: Chronic Assessment Hypotension-Blood pressure stabilized overnight with high-volume fluids and one unit of blood cells yesterday. Acute blood loss anemia-Hemoglobin lower today than post transfusion and likely to drop-additional transfusion today with posttransfusion hemoglobin pending. Periprosthetic fracture-s/p left hemiarthroplasty with fixation 4/8/17; nonweightbearing LLE. IV Dilaudid or Page for pain control. History CVA with left hemiparesis/dysphasia-patient reports that he is permitted to eat pured food that nursing facility, speech therapy to evaluate. Continue tube feedings at present and swabs for oral comfort. Tachycardia/decreased urine output-urine output improving today, low-grade tachycardia consistent with anemia. Continue to monitor. Plan/Intensity of Service Chest x-ray reviewed by myself. Laboratory data reviewed, supplemental history provided by nursing. IV narcotics and [id number] medication. Code Status Full Code Hospital Course Summary Disclaimer The hospital course summary below is not to be considered part of the above Progress Note. Hospital Course Summary Admit patient to inpatient status under the care of Dr. Navarro for fall with acute periprosthetic fracture of the left hip. Consultation is placed to Dr. Diaz and the orthopedic team for further with evaluation and treatment. Medical screening including CBC, BMP, urinalysis, EKG and chest x-ray. IV lock in place for pain control NPO with Tube feedings only. Tube Feeding management including Jevity 1.5 calorie, 270 mL 5 times a day, and 60 ML before and after each feeding of free water. Total free water will be 600 ml/24 hr. Will continue to use Page 10 mg that he chronically uses for pain however will also have IV morphine available for acute breakthrough pain. At midnight we will make patient nothing by mouth for probable surgery tomorrow 10/08. Continue with Keppra 500mg BID for seizure prophylaxis. Will monitor post-op CBC routinely to evaluation for postop anemia At time of discharge medical care is to return to PCP Dr Jarrett 10/08/16 Given acute hypotension post-operatively. Will given 500 ML NS W/O pressure bag. Then continues NS at 125 ml/hr. Monitor weight and respiratory status given amount of IV fluid he received during surgery. Monitor for fluid overload. Stat H&H is obtained and Hgb was found to be 7.4. Crossmatch 1 unit of packed RBC to transfuse now. Will continue to follow serial Hgb closely. Will place Inderal on hold given hypotension. Page as needed for pain control. Will need to ender caution with IV narcotics given Hypotension. Orthopedic care as per Dr Diaz Patient will require 30 days of post-op anticoagulation. Scheduled to start Lovenox this evening. Will discuss further plan of care with attending, Dr Navarro 10/09/16 Hypotension-Blood pressure stabilized overnight with high-volume fluids and one unit of blood cells yesterday. Acute blood loss anemia-Hemoglobin lower today than post transfusion and likely to drop-additional transfusion today with posttransfusion hemoglobin pending. Periprosthetic fracture-s/p left hemiarthroplasty with fixation 10/08/16; nonweightbearing LLE. IV Dilaudid or Page for pain control. History CVA with left hemiparesis/dysphasia-patient reports that he is permitted to eat pured food that nursing facility, speech therapy to evaluate. Continue tube feedings at present and swabs for oral comfort. Tachycardia/decreased urine output-urine output improving today, low-grade tachycardia consistent with anemia. Continue to monitor. SADI NAVARRO MD Oct 09, 2016 14:12
[2016-10-09 16:04] LABS: HCT - HEMATOCRIT 20.3 % (41-53); HGB - HEMOGLOBIN 6.6 GM/DL (13.5-17.5)
--- NOTE | 2016-10-09 16:11 | NUR ---
ACTIVITY RN IN ROOM TO REPOSITION PATIENT AT THIS TIME. PATIENT INFORMED RN HE DID NOT WANT TO BE TURNED. THIS RN AND KAYA SANDOVAL RN (PRIMARY NURSE) DISCUSSED RISKS OF NOT BEING TURNED. PATIENT CONTINUES TO REFUSE TURNS AT THIS TIME. WILL ATTEMPTED TO REPOSITION PATIENT AT A LATER TIME.
--- NOTE | 2016-10-09 18:15 | NUR ---
Summary Pt A&O X2. Pt on RA. 1 unit of blood given this AM, another unit of blood being given at this time per Dr. James orders. PRN Otto given per Pts request for pain via the PEG tube as well as scheduled medications. Pt using mouth swabs in his mouth throughout the day. Ice pack in place to the left hip. Repositioning being done at times throughout the day, other times the Pt has refused to reposition for myself and other nursing staff. This RN as well as other nursing staff have discussed the risk of getting a pressure sore with the Pt refusing repositioning. Pt used his incentive spirometer a few times but has refused most of the shift. Bed alarm on, call light w/in reach, side rails up X2.
--- NOTE | 2016-10-09 20:45 | NUR ---
STATUS 2ND UNIT BLOOD TRANSFUSION COMPLETE . PATIENT TOLERATED OK. VITAL SIGN STABLE. DENIES CHEST PAIN,SOA ,OR C/O DISCOMFORT. PATIENT REFUSED TO TURN WHEN RN OFFERED TO ASSIST HIM.CONTINUE TO MONITOR.
[2016-10-09 20:56] LABS: HGB - HEMOGLOBIN 7.3 GM/DL (13.5-17.5)
[2016-10-09] MEDS: ENOXAPARIN 40 MG/0.4 ML INJECTION SQ SCH (21:14)
[2016-10-09] MEDS: HYDROMORPHONE 2mg/ml INJECTION IV PRN (23:29)
[2016-10-10] VITALS (7 sets, daily range): BP systolic 98–129; BP diastolic 62–76; PULSE 95–122; RESP 16–24; TEMP 98.2–100.4; O2SAT 93–98
--- NOTE | 2016-10-10 00:24 | NUR ---
Chart Check 24 hour chart check completed
[2016-10-10] MEDS: NOZIN NASAL SWAB NS SCH ×3 (01:57→17:00)
--- NOTE | 2016-10-10 02:40 | NUR ---
LOW HGB PATIENT HAD HGB 7.3 AFTER 2UNITS OF BLOOD TRANSFUSION ON 10/09. NOTIFIED DR LINDO VIA TIGER TEXT. DR LINDO ORDER TO DRAW CBC AND CMP THIS MORNING.
[2016-10-10 05:14] LABS: BASOPHILS % (AUTO) 0.3 % (0-2); EOSINOPHILS # (AUTO) 0.1 T/MM3 (0-0.5); HCT - HEMATOCRIT 23.5 % (41-53); HGB - HEMOGLOBIN 7.6 GM/DL (13.5-17.5); IMMATURE GRANULOCYTE # (AUTO) 0.02 T/MM3 (0.00-0.03); IMMATURE GRANULOCYTE % (AUTO) 0.2 % (0.0-0.5); LYMPHOCYTES % (AUTO) 25.6 % (23-45); MEAN CORPUSCULAR HGB 28.5 UUG (26-34); MEAN CORPUSCULAR HGB CONC(MCHC 32.3 GM/DL (31-37); MEAN PLATELET VOLUME 11.3 UM3 (9.4-12.4); MONOCYTES # (AUTO) 1.5 T/MM3 (0-0.8); MONOCYTES % (AUTO) 13.3 % (0-9.0); NEUTROPHILS #(AUTO)-ABSOLUTE 6.9 T/MM3 (1.8-7.7); NEUTROPHILS % (AUTO) 59.6 % (33-66); RED BLOOD COUNT 2.67 M/MM3 (4.50-5.90); WBC - WHITE BLOOD COUNT 11.6 T/MM3 (4.5-11.0)
[2016-10-10 05:23] LABS: INR 1.05 (0.76-1.04); PROTHROMBIN TIME 11.4 SEC (9.31-12.49)
[2016-10-10 05:29] LABS: ANION GAP 5 MEQ/L (5-15); BUN/CREATININE RATIO 35 RATIO (6-26); CALCIUM 7.7 MG/DL (8.4-10.2); CHLORIDE 103 MEQ/L (98-107); CO2 - CARBON DIOXIDE 30 MEQ/L (22-30); CREATININE 0.4 MG/DL (0.8-1.5); GLOMERULAR FILTRATION RATE 223; GLUCOSE 99 MG/DL (75-110); POTASSIUM 4.5 MEQ/L (3.6-5); SODIUM 138 MEQ/L (134-144)
--- NOTE | 2016-10-10 07:00 | NUR ---
LOW HGB PATIENT'S HGB IS 7.G THIS MORNING. NOTIFIED DR LINDO VIA TIGER TEXT. TELE OFF 7AM. REPORTED TO [place].
--- NOTE | 2016-10-10 07:54 | PDORTHOPN ---
Subjective Date DATE: 10/10/16 TIME: 07:50 Subjective S/P revision left hip endo for jose-prosthetic fx 10/08/16. Had large hematoma at time of surgery which was removed. Received 1U of PRBCs. Patient otherwise doing well.. No other complaints Objective Vital Signs Vital signs Vital Signs 10/09/16 10/09/16 10/10/16 10/10/16 20:00 20:07 00:02 04:01 Temp 98.9 100.4 99.5 Pulse 104 104 111 95 Resp 16 24 22 B/P 101/61 98/62 115/69 Pulse Ox 94 94 97 O2 Delivery Room Air Room Air Room Air Height (Feet): 6 Height (Inches): 0.00 Weight (Kilograms): 81.900 General General Appearance: Alert, Well Nourished, Well Developed, No Acute Distress Respiratory (Brief) Respiratory Brief: FOUND: non-labored Cardiovascular (Brief) Cardiac: FOUND: calf soft, nontender, pedal pulses intact Surgical Site Incision: FOUND: Mepilex dressing intact, bloody drainage present (Small amount of bloody drainage on distal part of the dressing.), clean, dry, intact Integumentary (Brief) Integumentary Brief: FOUND dry, FOUND pink, FOUND warm Neurologic (Brief) Neurological Brief: FOUND: extremities w/o deficits, neuro intact Psychiatric (Brief) Psychiatric Brief: FOUND: alert, no acute distress Laboratory Laboratory Laboratory Tests 10/08/16 12:26 10/08/16 17:25 10/09/16 04:07 10/09/16 13:45 10/09/16 15:52 10/09/16 20:46 10/10/16 04:30 Laboratory Tests 10/09/16 04:07 10/10/16 04:29 Assessment & Plan Problems: (1) Periprosthetic fracture around internal prosthetic left hip joint, initial encounter Status: Acute Assessment & Plan: S/P left hip endo revision 10/08 Continue pain control Monitor labs. Protect WB to non on operative extremity F/U in ortho clinic as scheduled. Hospital Course Summary Disclaimer The visit summary below is not to be considered part of the above Progress Note. Hospital Course Admit patient to inpatient status under the care of Dr. Navarro for fall with acute periprosthetic fracture of the left hip. Consultation is placed to Dr. Diaz and the orthopedic team for further with evaluation and treatment. Medical screening including CBC, BMP, urinalysis, EKG and chest x-ray. IV lock in place for pain control NPO with Tube feedings only. Tube Feeding management including Jevity 1.5 calorie, 270 mL 5 times a day, and 60 ML before and after each feeding of free water. Total free water will be 600 ml/24 hr. Will continue to use [place] 10 mg that he chronically uses for pain however will also have IV morphine available for acute breakthrough pain. At midnight we will make patient nothing by mouth for probable surgery tomorrow 10/08. Continue with Keppra 500mg BID for seizure prophylaxis. Will monitor post-op CBC routinely to evaluation for postop anemia At time of discharge medical care is to return to PCP Dr Jarrett 10/08/16 Given acute hypotension post-operatively. Will given 500 ML NS W/O pressure bag. Then continues NS at 125 ml/hr. Monitor weight and respiratory status given amount of IV fluid he received during surgery. Monitor for fluid overload. Stat H&H is obtained and Hgb was found to be 7.4. Crossmatch 1 unit of packed RBC to transfuse now. Will continue to follow serial Hgb closely. Will place Inderal on hold given hypotension. [place] as needed for pain control. Will need to ender caution with IV narcotics given Hypotension. Orthopedic care as per Dr Diaz Patient will require 30 days of post-op anticoagulation. Scheduled to start Lovenox this evening. Will discuss further plan of care with attending, Dr Navarro 10/09/16 Hypotension-Blood pressure stabilized overnight with high-volume fluids and one unit of blood cells yesterday. Acute blood loss anemia-Hemoglobin lower today than post transfusion and likely to drop-additional transfusion today with posttransfusion hemoglobin pending. Periprosthetic fracture-s/p left hemiarthroplasty with fixation 10/08/16; nonweightbearing LLE. IV Dilaudid or [place] for pain control. History CVA with left hemiparesis/dysphasia-patient reports that he is permitted to eat pured food that nursing facility, speech therapy to evaluate. Continue tube feedings at present and swabs for oral comfort. Tachycardia/decreased urine output-urine output improving today, low-grade tachycardia consistent with anemia. Continue to monitor. GLORIA GARY Oct 10, 2016 07:54
--- NOTE | 2016-10-10 08:22 | NUR ---
STATUS PATIENT A & O X2. PATIENT ON RA .PATIENT C/O PAIN AT LT HIP . PRN DILAUDID IV WAS GIVEN. PRN LORTAB ELIXIR AND SCHEDULE MED WAS GIVEN VIA PEG TUBE,PATIENT TOLERATED WELL. NO C/O CHEST PAIN,SOA,OR N/V. PATIENT REMOVE EKG PATCHES AND CONTINUED OXYGEN MONITOR . PATIENT PRESSED CALL LIGHT CONSISTENTLY. PATIENT REFUSED TO TURN DURING SHIFT.ON BED ALARM.CONTINUE TO MONITOR.
[2016-10-10] MEDS: GABAPENTIN 300 MG CAPSULE PEG SCH ×3 (09:36→22:14)
[2016-10-10] MEDS: PAROXETINE 20 MG TABLET PEG SCH (09:36)
[2016-10-10] MEDS: LEVETIRACETAM 500 MG/5 ML PEG SCH ×2 (09:36→22:14)
[2016-10-10] MEDS: HYDROCODONE-APAP 2.5mg-108mg/5ml ELIXIR PEG PRN ×3 (09:38→22:15)
--- NOTE | 2016-10-10 10:27 | NUR ---
Tube feeding f/u Bolus feedings: Fibersource HN (1.2): 8 (250ml) cartons plus 600 ml free water daily. Feedings are well-tolerated with minimal or no residuals. RD will continue to monitor x 1406
--- NOTE | 2016-10-10 10:30 | STEVAL ---
Eval Subjective and History Date/Time of Eval DATE: 10/10/16 TIME: 09:44 Medical Diagnosis SPEECH THERAPY CONSULTATION FOR DIET RECOMMENDATIONS Treatment Order: Assessment, Dev./Imp. tx plan Orientations: Person, Cooperative Primary Complaint: LEFT HIP FX S/P FALL Pain: Yes ("MY LOWER BODY"- RN NOTIFIED) Date of Onset of Primary Com: ORDER DATE: 10/10/2016 Secondary Complaint: DYSPHAGIA- CHRONIC Prior History of This Problem: Yes (CHRONIC DYSPHAGIA S/P CVA IN APRIL 2016) Patient's Goals: "TO CALL MY MOM" Significant Past Medical Hx: PMH: HX OF ACUTE CVA IN 2016 (RIGHT HEMISPHERE), LEFT HEMIPARESIS (CHRONIC), CHRONIC DYSPHAGIA WITH PEG-TUBE PLACEMENT, HTN, HX OF ALCOHOL DEPENDENCE Medical History Form Reviewed: Yes Residence Type: [facility] ([facility]) Lives With: Finance Specialist Caregiver Status: Yes Prior Functional Status: PATIENT WITH CHRONIC DYSPHAGIA, RECEIVING NON-ORAL NUTRITION VIA PEGTUBE. REPORTS INDICATE THAT HE WAS RECEIVING SMALL PORTIONS OF PUREED FOOD WITH NECTAR THICKENED LIQUIDS AT THE CARE HOME. Current Functional Status: INCREASED RISK OF ASPIRATION, DECREASED SAFETY AWARENESS AND POOR SELF-AWARENSES Education Comment ELECTRONICS COMMODITY MANAGER EDUCATED PATIENT ON REASONING OF EVALUATION AND RECOMMENDATIONS. HE VERBALIZED UNDERSTANDING--- QUESTION HIS ABILITY TO RECALL INFORMATION ACCURATELY. RN NOTIFIED OF RECS. KAMINI, ELECTRONICS COMMODITY MANAGER AT [facility] WAS CONTACTED. SHE REPORTS THAT SHE HAS BEEN WORKING WITH PATIENT AND THAT HE JUST RECENTLY COMPLETED A SWALLOW STUDY AT [facility]. SHE STATES REPORTS INDICATED SILENT ASPIRATION. SHE STATES HE IS ON A PUREED DIET WITH NECTAR THICKENED LIQUIDS- SHE QUESTIONS VOCAL CORD INVOLVEMENT. REVIEWED MY RECOMMENDATIONS WITH HER OF NPO AND SHE VERBALIZED UNDERSTANDING. Subjective and History Comment: MARÍA WAS EVALUATED IN HIS ROOM. HE WAS REPOSITIONED UPRIGHT IN BED, BUT PATIENT WAS UNABLE TO TOLERATE 90 DEGREES SECONDARY TO HIP PAIN. PATIENT WAS POSITIONED TO 75 DEGREES. PATIENT REPORTED THAT HE WANTED TO CALL HIS MOTHER- HE WAS EASILY REDIRECTED. NURSING STAFF REPORT HE IS WANTING TO CALL HIS MOTHER EVERY 10-15 MINUTES AND SHE TOLD NURSING STAFF TO NOT ALLOW THIS. PATIENT ALSO WITH VISUAL HALLUCINATIONS HE WAS SEEING "TOES UNDER THOSE PILLOWS OVER THERE... CAN'T YOU SEE THEM TOO?" Dysphagia Evaluation Evaluation Location: Bed Evaluation Angle: 75 Oral Peripheral Exam-facial: Facial Symmetry: Generalized Tongue Elevation: No Impairment (WFL) Tongue Lateralization: Moderate Impairment (DEVIATES TOWARDS LEFT) Tongue Protrusion: Minimal Impairment Tongue Retraction: No Impairment (WFL) Tongue Extension Midline: Moderate Impairment (DEVIATES TOWARDS LEFT) Labial Approximation: No Impairment (WFL) Intraoral Air Pressure: No Impairment (WFL) Volitional Cough: Minimal Impairment (WEAK) Larynx Elevation During Swallo: Minimal Impairment Saliva Control: No Impairment (WFL) Dentition: Natural Oral Peripheral Exam Comment: PATIENT WITH INCONSISTENT LINGUAL RANGE OF MOTION. PATIENT NOTED TO HAVE TONGUE DEVIATION TOWARDS THE LEFT WITH EXTENSION AND LATERALIZATION. PATIENT NOTED TO HAVE MINIMALLY REDUCED HYOLARYNGEAL ELEVATION UPON PALPATION. Lip Seal: Adequate-liquid (NTL), Adequate-pudding Lingual Manipulation: Adequate-liquid (NTL), Adequate-pudding Oral cavity clear post swallow: Adequate-liquid (NTL), Adequate-pudding Swallow initiated w/o delay: Inadequate-liquid (NTL), Inadequate-pudding Multiple swallows not needed: Adequate-liquid (NTL), Adequate-pudding Voice clear&dry post swallow: Inadequate-liquid (NTL/HTL), Inadequate-pudding No cough/throat clear: Inadequate-liquid (NTL/HTL), Inadequate-pudding Comments MARÍA WAS REPOSITIONED UPRIGHT TO 75 DEGREES. HE WAS GIVEN A THERAPEUTIC TRIAL OF ICE CHIPS VIA SPOON. PATIENT WITH FAIR MASTICATION OF ICE CHIPS AND IMMEDIATE THROAT CLEAR/COUGH FOLLOWING SWALLOW RESPONSE. NECTAR THICKENED LIQUID GIVEN VIA SPOON. PATIENT WITH INCOORDINATED ORAL PHASE OF SWALLOW AND DELAYED SWALLOW RESPONSE OF 2 SECONDS. HYOLARYNGEAL ELEVATION REDUCED. IMMEDIATE WET PHARYNGEAL RESPIRATIONS NOTED WITH WET VOICING- TRIALS D/C. THERAPEUTIC TRIAL OF HONEY THICKENED LIQUID THEN PRESENTED VIA SPOON. PATIENT YET AGAIN WITH SAME RESPONSE NECTAR THICKENED LIQUIDS. PUDDING CONSISTENCY TRIALED VIA SPOON. PATIENT WITH FAIR ORAL CLEARING AND PROMPT SWALLOW RESPONSE. WET VOICING AFTER 2/3 TRIALS- NO OTHER CLINICAL S/S OF ASPIRATIONS. Assessment/Plan of Care Speech Therapy Impressions: PATIENT PRESENTS WITH OROPHARYNGEAL DYSPHAGIA. RECOMMENDATIONS OUTLINED BELOW. ST Treatment Plan: NPO, Evaluation Only ST Treatment Plan Frequency: N/A Treatment Plan Duration: N/A Plan of Care Comment RECOMMENDATIONS: 1) RECOMMEND THAT PATIENT REMAIN NPO WITH NON-ORAL NUTRITION VIA PEG-TUBE * MAY RECEIVE ICE CHIPS VIA SPOON WITH SUPERVISION VIA FINN WATER/ICE PROTOCOL 2) WHEN PATIENT IS ABLE TO TOLERATE POSITIONING AT 90 DEGREES, RECOMMEND A MODIFIED BARIUM SWALLOW STUDY WITH STRATEGIES SUCH HEAD ROTATION, CHIN TUCK... TO SEE IF ANY MODIFICATIONS CAN BE MADE FOR PATIENT TO SAFELY CONSUME ANYTHING ORALLY Date of Visit 10/10/16 Time Visit Began: 08:15 Time Visit Ended: 08:30 ST Assess/Plan of Care: ST Treatment Charge: Swallow Eval Minutes of Individual Therapy: 15 TERRELL HOOKS MS CCC-ELECTRONICS COMMODITY MANAGER Oct 10, 2016 09:48
--- NOTE | 2016-10-10 10:32 | NUR ---
DYSPHAGIA EVALUATION COMPLETED PATIENT WITH S/S OF ASPIRATION ON ALL TRIALS (PUDDING, NTL AND HTL). RECOMMEND CONTINUATION OF NPO STATUS.
--- NOTE | 2016-10-10 11:45 | NUR ---
CM CM IN TO VISIT WITH PT. HE IS ALERT AND ORIENTED. HE CONFIRMS THAT HE RESIDES AT [facility]. HE SAID IT WILL BE UP TO HIS MOM IF HE RETURNS THERE UPON DC. HE IS GIVEN UPDATED CM CONTACT INFORMATION AND [facility] LETTER. Addendum: 10/10/16 at 1146 by KAL URENA RN Amended: Links added.
--- NOTE | 2016-10-10 11:51 | NUR ---
VLAD CHU SPOKE WITH JAMEY AT [facility]. SHE CONFIRMS THAT PT RESIDES THERE IN HEALTHCARE. SHE IS GIVEN UPDATE AND PORTAL IS OPENED. SPOKE WITH PT MOTHER VIA TELEPHONE. SHE PLANS FOR PT TO RETURN TO [facility]. SHE IS REASSURED THAT VLAD WILL ASSIST WITH TRANSITION AT TIME OF DC.
[2016-10-10] MEDS: POLYETHYL.GLYCOL 3350 PACKET 17gm PEG SCH ×2 (12:26→17:00)
[2016-10-10 14:52] LABS: HGB - HEMOGLOBIN 7.4 GM/DL (13.5-17.5)
--- NOTE | 2016-10-10 16:02 | PNPDOC ---
MICHAEL MARTINEZ V COMMERCIAL FINANCE ANALYST 10/10/16 1553: Subjective Date DATE: 10/10/16 TIME: 15:48 Subjective Héctor is seen today in follow up. He is resting in bed playing on his cell phone during examination. He reports that he has left hip pain that is 1000/10. He is noted to be mildly tachycardic at 100 on auscultation. Denies having chest pain or shortness of breath. Is noted to be maintaining adequate room air saturations. Mora cath intact however is clamped for bladder training. Objective Vital Signs Vital signs Vital Signs Date Time Temp Pulse Resp B/P Pulse Ox O2 Delivery O2 Flow Rate FiO2 10/10/16 12:34 99.6 101 20 129/75 94 Room Air 10/09/16 07:58 1.00 Height (Feet): 6 Height (Inches): 0.00 Weight (Kilograms): 83.100 General General Appearance: Alert, Orientated x 3, Cooperative, No Acute Distress Eyes (Brief) Eyes: FOUND: EOMI ENMT (Brief) ENMT: FOUND: mucosa moist, normal dentition, NOT FOUND: pharnyx erythema Neck (Brief) Neck: FOUND: midline, NOT FOUND: adenopathy, carotid bruits, tracheal deviation Respiratory (Brief) Respiratory: NOT FOUND: wheezes Comments Diminished Cardiovascular (Brief) Cardiac: FOUND: regular rate, regular rhythm, NOT FOUND: murmur, pedal edema Capillary Refill: <2 sec Abdomen (Brief) Abdominal: FOUND: BS normo active x4, soft, NOT FOUND: distended, tender Lymphatic (Brief) Lymphatic: NOT FOUND: adenopathy Musculoskeletal (Brief) Musculoskeletal: NOT FOUND: tenderness Integumentary (Brief) Integumentary: FOUND: dry, pink, warm Neurologic (Brief) Neurological: FOUND: cranial 2-12 intact Psychiatric (Brief) Psychiatric: FOUND: alert, attentive, normal affect, oriented Laboratory Laboratory Laboratory Tests 10/09/16 04:07 10/10/16 04:29 Laboratory Tests 10/08/16 17:25 10/09/16 04:07 10/09/16 13:45 10/09/16 15:52 10/09/16 20:46 10/10/16 04:30 10/10/16 13:39 Assessment & Plan Problems: (1) Periprosthetic fracture around internal prosthetic left hip joint, initial encounter Status: Acute (2) Hypotension Status: Acute Assessment & Plan: Postop (3) Postoperative anemia Status: Acute (4) Hemiparesis affecting left side as late effect of cerebrovascular accident ( CVA) Onset Date: 04/27/2016 Status: Chronic (5) Dysphagia following cerebrovascular accident (CVA) Onset Date: 04/27/2016 Status: Chronic (6) Anemia Status: Chronic (7) Gait instability Status: Chronic (8) Chronic constipation Status: Chronic (9) HTN (hypertension) Status: Chronic Plan/Intensity of Service 10/10/16 Continue with Lortab elixir and Dilaudid as needed for pain control In light of mild tachycardia will resume home dose of propranolol 10 milligrams twice a day. On at her for evidence of hypotension. Continue to monitor hemoglobins carefully. As patient has had postoperative anemia and did require 3 units of packed red blood cells. Hgb this afternoon 7.4, will recheck tomorrow morning Continue with scheduled Keppra for seizure prophylaxis Continue with MiraLAX and milk of magnesia for postoperative bowel motivation Encourage work with PT and OT for postoperative strengthening Code Status Full Code Hospital Course Summary Disclaimer The hospital course summary below is not to be considered part of the above Progress Note. Hospital Course Summary Admit patient to inpatient status under the care of Dr. Navarro for fall with acute periprosthetic fracture of the left hip. Consultation is placed to Dr. Diaz and the orthopedic team for further with evaluation and treatment. Medical screening including CBC, BMP, urinalysis, EKG and chest x-ray. IV lock in place for pain control NPO with Tube feedings only. Tube Feeding management including Jevity 1.5 calorie, 270 mL 5 times a day, and 60 ML before and after each feeding of free water. Total free water will be 600 ml/24 hr. Will continue to use [place] 10 mg that he chronically uses for pain however will also have IV morphine available for acute breakthrough pain. At midnight we will make patient nothing by mouth for probable surgery tomorrow 10/08. Continue with Keppra 500mg BID for seizure prophylaxis. Will monitor post-op CBC routinely to evaluation for postop anemia At time of discharge medical care is to return to PCP Dr Jarrett 10/08/16 Given acute hypotension post-operatively. Will given 500 ML NS W/O pressure bag. Then continues NS at 125 ml/hr. Monitor weight and respiratory status given amount of IV fluid he received during surgery. Monitor for fluid overload. Stat H&H is obtained and Hgb was found to be 7.4. Crossmatch 1 unit of packed RBC to transfuse now. Will continue to follow serial Hgb closely. Will place Inderal on hold given hypotension. [place] as needed for pain control. Will need to ender caution with IV narcotics given Hypotension. Orthopedic care as per Dr Diaz Patient will require 30 days of post-op anticoagulation. Scheduled to start Lovenox this evening. Will discuss further plan of care with attending, Dr Navarro 10/09/16 Hypotension-Blood pressure stabilized overnight with high-volume fluids and one unit of blood cells yesterday. Acute blood loss anemia-Hemoglobin lower today than post transfusion and likely to drop-additional transfusion today with posttransfusion hemoglobin pending. Periprosthetic fracture-s/p left hemiarthroplasty with fixation 10/08/16; nonweightbearing LLE. IV Dilaudid or [place] for pain control. History CVA with left hemiparesis/dysphasia-patient reports that he is permitted to eat pured food that nursing facility, speech therapy to evaluate. Continue tube feedings at present and swabs for oral comfort. Tachycardia/decreased urine output-urine output improving today, low-grade tachycardia consistent with anemia. Continue to monitor. 10/10/16 Continue with Lortab elixir and Dilaudid as needed for pain control In light of mild tachycardia will resume home dose of propranolol 10 milligrams twice a day. On at her for evidence of hypotension. Continue to monitor hemoglobins carefully. As patient has had postoperative anemia and did require 3 units of packed red blood cells. Hgb this afternoon 7.4, will recheck tomorrow morning Continue with scheduled Keppra for seizure prophylaxis Continue with MiraLAX and milk of magnesia for postoperative bowel motivation Encourage work with PT and OT for postoperative strengthening ISHAN PORTILLO MD 10/10/161915: Assessment & Plan Plan/Intensity of Service Have independently interviewed and examined pt. Chart reviewed. Case discussed with nursing, CM, and my COMMERCIAL FINANCE ANALYST. Care plan developed with my supervision; agree with above. Resting in bed this evening. Nursing reports bowels moving. Pain varies. Lungs: decrease, shallow respirations. CV: regular AB: soft nt/nd BS decreased Plan: Restart propranolol - monitor BP. Continue pain control. Continue PT/OT to maximize functional status. Monitor blood counts. Continue with supportive post op care. MICHAEL MARTINEZ V COMMERCIAL FINANCE ANALYST Oct 10, 2016 15:53 ISHAN PORTILLO MD Oct 10, 2016 19:16
--- NOTE | 2016-10-10 16:56 | NUR ---
Tube Feeding Revision for Nutren 2.0 [employer] HN is unavailable tonrocky. Calculations redone for use of Nutren 2.[address] recommendation: Nutren 2.0 (2.0 saul/ml), 1.5 cartons (250 ml/carton) @ 07:00 and 17:00 and 1 carton @ 12:00 and 22:00 with an additional 1360 ml water per 24 hrs. May want to give 170 ml before and after each feeding or give water in smaller amounts more frequently. This recommendation provides similar calories, protein and fluid as recommendation suggested earlier by RD for [employer] HN. When [employer] HN is available again, return to original recommendation. RD available at Ext. [phone].
--- NOTE | 2016-10-10 19:47 | NUR ---
SHIFT SUMMARY PATIENT IS ALERT AND ORIENTED TO PERSON AND TIME. PATIENT DENIES CP, SOA, AND NAUSEA. PATIENT VITALS HAVE BEEN STABLE AND PATIENT IS ON ROOM AIR. PATIENT IS TURN Q2HR. PATIENT DRESSING HAS DRAINAGE HAS BEEN CIRCLED. PATIENT WAS UP TO SIDE OF BED WITH PT. PATIENT MCKINLEY IS PATIENT AND DRAINING. FAMILY WAS AT BEDSIDE. WILL CONTINUE TO MONITOR.
[2016-10-10] MEDS: ENOXAPARIN 40 MG/0.4 ML INJECTION SQ SCH (22:13)
[2016-10-10] MEDS: PROPRANOLOL 10 MG TABLET PEG SCH (22:14)
[2016-10-11] VITALS (11 sets, daily range): BP systolic 96–128; BP diastolic 61–67; PULSE 89–110; RESP 18–24; TEMP 98.6–102.3; O2SAT 92–96
[2016-10-11] MEDS: NOZIN NASAL SWAB NS SCH ×3 (01:00→17:09)
--- NOTE | 2016-10-11 01:05 | NUR ---
PROVIDER NOTIFICATION Notified Dr. Stephen that patient has a temperature of 101.1. I was directed to start normal saline at 75 ml/hr. Order is in and initiated. Will continue to monitor.
[2016-10-11] MEDS: NORMAL SALINE 1,000 ML IV SCH ×3 (01:24→18:58)
[2016-10-11 05:31] LABS: BASOPHILS # (AUTO) 0.1 T/MM3 (0-0.2); BASOPHILS % (AUTO) 0.4 % (0-2); EOSINOPHILS # (AUTO) 0.3 T/MM3 (0-0.5); EOSINOPHILS % (AUTO) 2.2 % (0-4); HCT - HEMATOCRIT 23.6 % (41-53); HGB - HEMOGLOBIN 7.5 GM/DL (13.5-17.5); IMMATURE GRANULOCYTE # (AUTO) 0.03 T/MM3 (0.00-0.03); IMMATURE GRANULOCYTE % (AUTO) 0.3 % (0.0-0.5); LYMPHOCYTES # (AUTO) 2.3 T/MM3 (1-4.8); LYMPHOCYTES % (AUTO) 20.6 % (23-45); MEAN CORPUSCULAR HGB 28.4 UUG (26-34); MEAN CORPUSCULAR HGB CONC(MCHC 31.8 GM/DL (31-37); MEAN CORPUSCULAR VOLUME 89.4 UM3 (80-100); MONOCYTES # (AUTO) 1.2 T/MM3 (0-0.8); MONOCYTES % (AUTO) 10.7 % (0-9.0); NEUTROPHILS #(AUTO)-ABSOLUTE 7.4 T/MM3 (1.8-7.7); NEUTROPHILS % (AUTO) 65.8 % (33-66); RED BLOOD COUNT 2.64 M/MM3 (4.50-5.90); WBC - WHITE BLOOD COUNT 11.3 T/MM3 (4.5-11.0)
--- NOTE | 2016-10-11 05:31 | NUR ---
SHIFT SUMMARY PATIENT IS ALERT AND ORIENTED X3 THIS SHIFT. PATIENT HAD A TEMP OF 101.1 THIS SHIFT, ORDERED FLUIDS. OTHERWISE VITALS WERE STABLE THIS SHIFT. PATIENT CONTINUES TO REPORT PAIN AT 10 OF 10. TWO OCCURRENCES OF DIARRHEA THIS SHIFT. DRESSING HAS SOME DRAINAGE FROM PREVIOUS SHIFT; KOTZEBUE OUTLINE HAS NOT BEEN EXCEEDED. WILL CONTINUE TO MONITOR.
[2016-10-11 05:45] LABS: ANION GAP 7 MEQ/L (5-15); BUN/CREATININE RATIO 28 RATIO (6-26); CALCIUM 7.7 MG/DL (8.4-10.2); CHLORIDE 99 MEQ/L (98-107); CO2 - CARBON DIOXIDE 30 MEQ/L (22-30); CREATININE 0.4 MG/DL (0.8-1.5); GLOMERULAR FILTRATION RATE 223; GLUCOSE 101 MG/DL (75-110); POTASSIUM 3.8 MEQ/L (3.6-5); SODIUM 136 MEQ/L (134-144)
--- NOTE | 2016-10-11 07:52 | PDORTHOPN ---
Subjective Date DATE: 10/11/16 TIME: 07:47 Subjective S/P revision left hip endo for jose-prosthetic fx 10/08/16. He complains of hip pain this AM. He is due for a dose of narcotic. He states the [place] works well enough for him when he needs it. He got up yesterday, "but I didn't make it far". He had sweats last night. T-max was 101.1. Resp rate has been 24. He denies other complaints. Objective Vital Signs Vital signs Vital Signs 10/11/16 10/11/16 10/11/16 10/11/16 07:58 08:00 08:26 10:09 Temp 102.3 99.3 98.6 Pulse 110 110 Resp 18 18 B/P 128/67 Pulse Ox 92 O2 Delivery Room Air 10/11/16 10/11/16 11:29 15:16 Temp 99.2 99.0 Pulse 89 94 Resp 20 18 B/P 96/61 103/65 Pulse Ox 96 96 O2 Delivery Room Air Room Air Height (Feet): 6 Height (Inches): 0.00 Weight (Kilograms): 83.100 General General Appearance: Alert, Well Nourished, Well Developed, No Acute Distress Respiratory (Brief) Respiratory Brief: FOUND: non-labored Cardiovascular (Brief) Cardiac: FOUND: calf soft, nontender, pedal pulses intact Abdomen (Brief) Abdominal Brief: FOUND: non-tender Musculoskeletal (Brief) Hip: FOUND ER-limited, FOUND IR-limited, FOUND decreased ROM(flexion) Surgical Site Incision: FOUND: Mepilex dressing intact, bloody drainage present (Small amount of bloody drainage on distal part of the dressing.), clean, dry, intact Integumentary (Brief) Integumentary Brief: FOUND dry, FOUND pink, FOUND warm Neurologic (Brief) Neurological Brief: FOUND: extremities w/o deficits, neuro intact Psychiatric (Brief) Psychiatric Brief: FOUND: alert, no acute distress Laboratory Laboratory Laboratory Tests 10/09/16 20:46 10/10/16 04:30 10/10/16 13:39 10/11/16 04:28 10/11/16 15:24 Laboratory Tests 10/10/16 04:29 10/11/16 04:28 Assessment & Plan Problems: (1) Periprosthetic fracture around internal prosthetic left hip joint, initial encounter Status: Acute Assessment & Plan: S/P left hip endo revision 10/08 Continue pain control Monitor labs. NON weight bearing on left leg. Will get CXR in view of fever and increased RR. F/U in ortho clinic as scheduled. Anticoagulant has been discussed with Dr. Diaz. In an effort to decrease risk of bleeding but still provide adequate DVT prophylaxis Dr. Diaz has recommended discontinuing Lovenox and starting Aspirin 325 PO BID. Mr. Valencia will need to complete a 6 week course. Hospital Course Summary Disclaimer The visit summary below is not to be considered part of the above Progress Note. Hospital Course Admit patient to inpatient status under the care of Dr. Navarro for fall with acute periprosthetic fracture of the left hip. Consultation is placed to Dr. Diaz and the orthopedic team for further with evaluation and treatment. Medical screening including CBC, BMP, urinalysis, EKG and chest x-ray. IV lock in place for pain control NPO with Tube feedings only. Tube Feeding management including Jevity 1.5 calorie, 270 mL 5 times a day, and 60 ML before and after each feeding of free water. Total free water will be 600 ml/24 hr. Will continue to use [place] 10 mg that he chronically uses for pain however will also have IV morphine available for acute breakthrough pain. At midnight we will make patient nothing by mouth for probable surgery tomorrow 10/08. Continue with Keppra 500mg BID for seizure prophylaxis. Will monitor post-op CBC routinely to evaluation for postop anemia At time of discharge medical care is to return to PCP Dr Jarrett 10/08/16 Given acute hypotension post-operatively. Will given 500 ML NS W/O pressure bag. Then continues NS at 125 ml/hr. Monitor weight and respiratory status given amount of IV fluid he received during surgery. Monitor for fluid overload. Stat H&H is obtained and Hgb was found to be 7.4. Crossmatch 1 unit of packed RBC to transfuse now. Will continue to follow serial Hgb closely. Will place Inderal on hold given hypotension. [place] as needed for pain control. Will need to ender caution with IV narcotics given Hypotension. Orthopedic care as per Dr Diaz Patient will require 30 days of post-op anticoagulation. Scheduled to start Lovenox this evening. Will discuss further plan of care with attending, Dr Navarro 10/09/16 Hypotension-Blood pressure stabilized overnight with high-volume fluids and one unit of blood cells yesterday. Acute blood loss anemia-Hemoglobin lower today than post transfusion and likely to drop-additional transfusion today with posttransfusion hemoglobin pending. Periprosthetic fracture-s/p left hemiarthroplasty with fixation 10/08/16; nonweightbearing LLE. IV Dilaudid or [place] for pain control. History CVA with left hemiparesis/dysphasia-patient reports that he is permitted to eat pured food that nursing facility, speech therapy to evaluate. Continue tube feedings at present and swabs for oral comfort. Tachycardia/decreased urine output-urine output improving today, low-grade tachycardia consistent with anemia. Continue to monitor. 10/10/16 Continue with Lortab elixir and Dilaudid as needed for pain control In light of mild tachycardia will resume home dose of propranolol 10 milligrams twice a day. On at her for evidence of hypotension. Continue to monitor hemoglobins carefully. As patient has had postoperative anemia and did require 3 units of packed red blood cells. Hgb this afternoon 7.4, will recheck tomorrow morning Continue with scheduled Keppra for seizure prophylaxis Continue with MiraLAX and milk of magnesia for postoperative bowel motivation Encourage work with PT and OT for postoperative strengthening MENA RAINES Oct 11, 2016 07:51
[2016-10-11] MEDS: HYDROCODONE-APAP 2.5mg-108mg/5ml ELIXIR PEG PRN ×2 (08:35→17:09)
[2016-10-11] MEDS: LEVETIRACETAM 500 MG/5 ML PEG SCH ×2 (08:35→22:22)
[2016-10-11] MEDS: PAROXETINE 20 MG TABLET PEG SCH (08:36)
[2016-10-11] MEDS: PROPRANOLOL 10 MG TABLET PEG SCH ×2 (08:36→22:21)
[2016-10-11] MEDS: POLYETHYL.GLYCOL 3350 PACKET 17gm PEG SCH ×2 (08:36→17:00)
[2016-10-11] MEDS: GABAPENTIN 300 MG CAPSULE PEG SCH ×3 (08:36→22:21)
--- NOTE | 2016-10-11 09:03 | DI ---
Indication: ITS.REASON: fever, increased resp rate PROCEDURE: CHEST 1 VIEW: Encounter: Initial Comparison: October 08, 2016 Findings: Right apical scarring. Lungs are stable and grossly clear. No pleural effusion or pneumothorax. Heart size and mediastinal contours are stable. Pulmonary vascularity is unchanged. Impression: Stable chest without acute cardiopulmonary disease. .
[2016-10-11 09:07] LABS: BLOOD, URINE NEGATIVE (NEGATIVE); COLOR,URINE YELLOW (YELLOW); LEUKOCYTE ESTERASE ,URINE NEGATIVE (NEGATIVE); NITRITE,URINE NEGATIVE (NEGATIVE)
[2016-10-11] MEDS ORDERED: NORMAL SALINE 500 ML IV SCH (09:21)
[2016-10-11] MEDS ORDERED: DiphenhydrAMINE 25 MG CAPSULE PO ONE (09:30)
[2016-10-11 09:56] LABS: C. DIFFICILE TOXIN B NEGATIVE (NEGATIVE)
--- NOTE | 2016-10-11 13:12 | PNPDOC ---
MICHAEL MARTINEZ APRN 10/11/16 1301: Subjective Date DATE: 10/11/16 TIME: 12:56 Subjective Mr Valencia is seen today while resting in bed. He is sleeping however does arouse during examination. Complains of pain to the left hip however falls back asleep during examination. He is comfortably breathing on room air without evidence of distress. He was noted to have a fever this morning of 102.3, and was mildly tachycardic at 110. During that time. Current blood pressure 96/61. A urinalysis was repeated that was unremarkable. Stool was sent, however, was negative for C. difficile. Chest x-ray was repeated that was negative for acute cardiopulmonary findings. Objective Vital Signs Vital signs Vital Signs Date Time Temp Pulse Resp B/P Pulse Ox O2 Delivery O2 Flow Rate FiO2 10/11/16 11:29 99.2 89 20 96/61 96 Room Air 10/09/16 07:58 1.00 Height (Feet): 6 Height (Inches): 0.00 Weight (Kilograms): 82.800 General General Appearance: Alert, Orientated x 2, Cooperative, No Acute Distress Eyes (Brief) Eyes: FOUND: EOMI ENMT (Brief) ENMT: FOUND: mucosa moist, normal dentition, NOT FOUND: pharnyx erythema Neck (Brief) Neck: FOUND: midline, NOT FOUND: adenopathy, carotid bruits, tracheal deviation Respiratory (Brief) Respiratory: FOUND: clear all silver, equal bilaterally, NOT FOUND: wheezes Cardiovascular (Brief) Cardiac: FOUND: regular rate, regular rhythm, NOT FOUND: murmur, pedal edema Capillary Refill: <2 sec Abdomen (Brief) Abdominal: FOUND: BS normo active x4, soft, NOT FOUND: distended, tender Lymphatic (Brief) Lymphatic: NOT FOUND: adenopathy Musculoskeletal (Brief) Musculoskeletal: NOT FOUND: tenderness Integumentary (Brief) Integumentary: FOUND: dry, pink, warm Neurologic (Brief) Neurological: FOUND: cranial 2-12 intact Psychiatric (Brief) Psychiatric: FOUND: alert, attentive, normal affect, oriented Laboratory Laboratory Laboratory Tests 10/10/16 04:29 10/11/16 04:28 Laboratory Tests 10/09/16 13:45 10/09/16 15:52 10/09/16 20:46 10/10/16 04:30 10/10/16 13:39 10/11/16 04:28 Assessment & Plan Problems: (1) Periprosthetic fracture around internal prosthetic left hip joint, initial encounter Status: Acute (2) Hypotension Status: Acute Assessment & Plan: Postop (3) Postoperative anemia Status: Acute (4) Hemiparesis affecting left side as late effect of cerebrovascular accident ( CVA) Onset Date: 04/27/2016 Status: Chronic (5) Dysphagia following cerebrovascular accident (CVA) Onset Date: 04/27/2016 Status: Chronic (6) Anemia Status: Chronic (7) Gait instability Status: Chronic (8) Chronic constipation Status: Chronic (9) HTN (hypertension) Status: Chronic Plan/Intensity of Service 10/11/16 Given continued decrease in Hgb and hypotension will give blood transfusion of 1 unit of PRBCs today. Will follow serial Hgb closely. Given elevation in temperature this morning, urinalysis and chest x-ray were recheck and were both found to be negative. Of anoxic subcutaneous daily for postoperative DVT prophylaxis. Patient will need 30 days total with last dose being 11/07/16 Continue with bladder retraining. May be able to DC saeed cath later today Continue to monitor blood pressures. Patient is slightly hypotensive today. Keppra twice a day for seizure prophylaxis Continue with Lortab elixir via feeding tube for pain control. Will recheck CBC and BMP tomorrow morning Code Status Full Code Hospital Course Summary Disclaimer The hospital course summary below is not to be considered part of the above Progress Note. Hospital Course Summary Admit patient to inpatient status under the care of Dr. Navarro for fall with acute periprosthetic fracture of the left hip. Consultation is placed to Dr. Diaz and the orthopedic team for further with evaluation and treatment. Medical screening including CBC, BMP, urinalysis, EKG and chest x-ray. IV lock in place for pain control NPO with Tube feedings only. Tube Feeding management including Jevity 1.5 calorie, 270 mL 5 times a day, and 60 ML before and after each feeding of free water. Total free water will be 600 ml/24 hr. Will continue to use [place] 10 mg that he chronically uses for pain however will also have IV morphine available for acute breakthrough pain. At midnight we will make patient nothing by mouth for probable surgery tomorrow 4/8. Continue with Keppra 500mg BID for seizure prophylaxis. Will monitor post-op CBC routinely to evaluation for postop anemia At time of discharge medical care is to return to PCP Dr Jarrett 10/08/16 Given acute hypotension post-operatively. Will given 500 ML NS W/O pressure bag. Then continues NS at 125 ml/hr. Monitor weight and respiratory status given amount of IV fluid he received during surgery. Monitor for fluid overload. Stat H&H is obtained and Hgb was found to be 7.4. Crossmatch 1 unit of packed RBC to transfuse now. Will continue to follow serial Hgb closely. Will place Inderal on hold given hypotension. [place] as needed for pain control. Will need to ender caution with IV narcotics given Hypotension. Orthopedic care as per Dr Diaz Patient will require 30 days of post-op anticoagulation. Scheduled to start Lovenox this evening. Will discuss further plan of care with attending, Dr Navarro 10/09/16 Hypotension-Blood pressure stabilized overnight with high-volume fluids and one unit of blood cells yesterday. Acute blood loss anemia-Hemoglobin lower today than post transfusion and likely to drop-additional transfusion today with posttransfusion hemoglobin pending. Periprosthetic fracture-s/p left hemiarthroplasty with fixation 10/08/16; nonweightbearing LLE. IV Dilaudid or [place] for pain control. History CVA with left hemiparesis/dysphasia-patient reports that he is permitted to eat pured food that nursing facility, speech therapy to evaluate. Continue tube feedings at present and swabs for oral comfort. Tachycardia/decreased urine output-urine output improving today, low-grade tachycardia consistent with anemia. Continue to monitor. 10/10/16 Continue with Lortab elixir and Dilaudid as needed for pain control In light of mild tachycardia will resume home dose of propranolol 10 milligrams twice a day. On at her for evidence of hypotension. Continue to monitor hemoglobins carefully. As patient has had postoperative anemia and did require 3 units of packed red blood cells. Hgb this afternoon 7.4, will recheck tomorrow morning Continue with scheduled Keppra for seizure prophylaxis Continue with MiraLAX and milk of magnesia for postoperative bowel motivation Encourage work with PT and OT for postoperative strengthening 10/11/16 Given continued decrease in Hgb and hypotension will give blood transfusion of 1 unit of PRBCs today. Will follow serial Hgb closely. Given elevation in temperature this morning, urinalysis and chest x-ray were recheck and were both found to be negative. Of anoxic subcutaneous daily for postoperative DVT prophylaxis. Patient will need 30 days total with last dose being 11/07/16 Continue with bladder retraining. May be able to DC saeed cath later today Continue to monitor blood pressures. Patient is slightly hypotensive today. Keppra twice a day for seizure prophylaxis Continue with Lortab elixir via feeding tube for pain control. Will recheck CBC and BMP tomorrow morning ISHAN PORTILLO MD 10/11/16 1500: Assessment & Plan Plan/Intensity of Service Have independently interviewed and examined pt. Chart reviewed. Case discussed with CM, nursing, and my SUPERVISOR STONE. Care plan developed with my supervision; agree with above. Doing okay. Notes discomfort to hip, worse with movement. Has some cough with slight congestion. Nausea (feels it is due to the Tylenol in pain meds). Lungs: decreased, no distress or wheezes CV: tachy, regular AB: soft nt/nd +BS MSE; awake alert Plan: Will give 1 unit of pRBC due to persistent anemia and tachycardia. Continue with pain control. Speech recommending NPO - tube feedings for nutrition. Encourage therapy as able. Encourage respiratory toilet and IS. Monitor lab. DVT Prophylaxis: SCD'S, Braeden MARTINEZMICHAEL APRN Oct 11, 2016 13:01 ISHAN PORTILLO MD Oct 11, 2016 15:00
[2016-10-11 15:51] LABS: HGB - HEMOGLOBIN 8.3 GM/DL (13.5-17.5)
--- NOTE | 2016-10-11 18:04 | NUR ---
Summary Pt A&OX2. VS stable on RA. Pt recieved 1unit of blood this shift, tolerated well. Pt has had bowel movements this shift and adequate urine output from the saeed catheter. Pt given PRN [place] via the PEG tube per his request. Pt tolerating tube feedings well. Pt has refused to be repositioned in bed multiple times today, this RN has encouraged Pt to let us reposition him in bed to avoid pressure sores. This RN has also encouraged Pt to use his incentive spirometer, Pt stated "I want you to just throw it in the trash." Pt has been sleeping off and on this shift. Mepilex dressing and ice pack to the left hip.
[2016-10-11] MEDS: ASPIRIN *EC* 325mg TABLET PO SCH (22:21)
[2016-10-12] VITALS (9 sets, daily range): BP systolic 101–111; BP diastolic 58–72; PULSE 84–97; RESP 14–24; TEMP 98–99.6; O2SAT 94–99
[2016-10-12] MEDS: NOZIN NASAL SWAB NS SCH ×3 (01:00→17:06)
--- NOTE | 2016-10-12 01:00 | NUR ---
DANIELLE TEAGUE REFUSED MEDICATION AT THIS TIME.
[2016-10-12] MEDS: HYDROCODONE-APAP 2.5mg-108mg/5ml ELIXIR PEG PRN ×4 (04:42→22:26)
[2016-10-12 05:19] LABS: BASOPHILS % (AUTO) 0.2 % (0-2); EOSINOPHILS # (AUTO) 0.3 T/MM3 (0-0.5); EOSINOPHILS % (AUTO) 2.9 % (0-4); HCT - HEMATOCRIT 25.6 % (41-53); HGB - HEMOGLOBIN 8.3 GM/DL (13.5-17.5); IMMATURE GRANULOCYTE # (AUTO) 0.02 T/MM3 (0.00-0.03); IMMATURE GRANULOCYTE % (AUTO) 0.2 % (0.0-0.5); LYMPHOCYTES # (AUTO) 2.1 T/MM3 (1-4.8); LYMPHOCYTES % (AUTO) 18.5 % (23-45); MEAN CORPUSCULAR HGB 29.2 UUG (26-34); MEAN CORPUSCULAR HGB CONC(MCHC 32.4 GM/DL (31-37); MEAN CORPUSCULAR VOLUME 90.1 UM3 (80-100); MEAN PLATELET VOLUME 10.5 UM3 (9.4-12.4); MONOCYTES # (AUTO) 1.4 T/MM3 (0-0.8); MONOCYTES % (AUTO) 12.1 % (0-9.0); NEUTROPHILS #(AUTO)-ABSOLUTE 7.5 T/MM3 (1.8-7.7); NEUTROPHILS % (AUTO) 66.1 % (33-66); RED BLOOD COUNT 2.84 M/MM3 (4.50-5.90); WBC - WHITE BLOOD COUNT 11.3 T/MM3 (4.5-11.0)
--- NOTE | 2016-10-12 05:25 | NUR ---
SHIFT SUMMARY PT ALERT AND ORIENTED TO PERSON AND TIME. VITAL SIGNS STABLE ON ROOM AIR. PT DENIES C/P,N/V AND SOA. PT TAKES A HEAVY 3 TO GET UP TO THE BEDSIDE COMMODE WITH MINIMAL TO NO HELP FROM PT ON TRANSFER. A SIT TO STAND LIFT WAS UTILIZED TO GET HIM BACK TO BED. PT USED THE BED MAK THROUGHOUT THE REST OF THE EVENING WITH LITTLE SUCCESS. PT HAS REQUESTED PRN PAIN MEDICATION ONCE ON THIS SHIFT RATING PAIN A 6 OUT OF 10. TUBE FEEDINGS DONE VIA GRAVITY WITH NUTREN 2.0. WILL CONTINUE TO MONITOR.
[2016-10-12 05:30] LABS: ANION GAP 8 MEQ/L (5-15); BUN/CREATININE RATIO 38 RATIO (6-26); CALCIUM 7.9 MG/DL (8.4-10.2); CHLORIDE 100 MEQ/L (98-107); CO2 - CARBON DIOXIDE 29 MEQ/L (22-30); CREATININE 0.4 MG/DL (0.8-1.5); GLOMERULAR FILTRATION RATE 223; GLUCOSE 114 MG/DL (75-110); POTASSIUM 4.3 MEQ/L (3.6-5); SODIUM 137 MEQ/L (134-144)
--- NOTE | 2016-10-12 08:09 | PDORTHOPN ---
Subjective Date DATE: 10/12/16 TIME: 08:02 Subjective S/P revision left hip endo for jose-prosthetic fx 10/08/16. Héctor states he is feeling okay today. No new complaints. He did get up to the commode yesterday. He states he has only had a small BM so far and is requesting a suppository. He did have a temp yesterday up to 102.3. CXR, UA, and test for C. diff have been negative. He states he has not had chills or sweats today. Objective Vital Signs Vital signs Vital Signs 10/11/16 10/11/16 10/12/16 10/12/16 20:26 22:43 00:00 04:00 Temp 102.0 99.6 98.1 Pulse 107 107 96 90 Resp 18 18 24 16 B/P 115/65 107/69 111/72 Pulse Ox 95 96 97 O2 Delivery Room Air Room Air Room Air Height (Feet): 6 Height (Inches): 0.00 Weight (Kilograms): 83.900 General General Appearance: Alert, Well Nourished, Well Developed, No Acute Distress Respiratory (Brief) Respiratory Brief: FOUND: non-labored Cardiovascular (Brief) Cardiac: FOUND: calf soft, nontender, pedal pulses intact Abdomen (Brief) Abdominal Brief: FOUND: non-tender Musculoskeletal (Brief) Hip: FOUND ER-limited, FOUND IR-limited, FOUND decreased ROM(flexion) Surgical Site Incision: FOUND: Mepilex dressing intact, bloody drainage present (Small amount of bloody drainage on distal part of the dressing.), clean, dry, intact Integumentary (Brief) Integumentary Brief: FOUND dry, FOUND pink, FOUND warm Neurologic (Brief) Neurological Brief: FOUND: extremities w/o deficits, neuro intact Psychiatric (Brief) Psychiatric Brief: FOUND: alert, no acute distress Laboratory Laboratory Laboratory Tests 10/10/16 13:39 10/11/16 04:28 10/11/16 15:24 10/12/16 04:39 Laboratory Tests 10/11/16 04:28 10/12/16 04:39 Assessment & Plan Problems: (1) Periprosthetic fracture around internal prosthetic left hip joint, initial encounter Status: Acute Assessment & Plan: S/P left hip endo revision 10/08 Continue pain control Monitor labs. NON weight bearing on left leg. Will get CXR in view of fever and increased RR. F/U in ortho clinic as scheduled. Anticoagulant has been discussed with Dr. Diaz. In an effort to decrease risk of bleeding but still provide adequate DVT prophylaxis Dr. Diaz has recommended discontinuing Lovenox and starting Aspirin 325 PO BID. Mr. Valencia will need to complete a 6 week course. I did confirm with the nursing staff that PO route would work with his dysphasia and he was able to take the medication. Hospital Course Summary Disclaimer The visit summary below is not to be considered part of the above Progress Note. Hospital Course Admit patient to inpatient status under the care of Dr. Navarro for fall with acute periprosthetic fracture of the left hip. Consultation is placed to Dr. Diaz and the orthopedic team for further with evaluation and treatment. Medical screening including CBC, BMP, urinalysis, EKG and chest x-ray. IV lock in place for pain control NPO with Tube feedings only. Tube Feeding management including Jevity 1.5 calorie, 270 mL 5 times a day, and 60 ML before and after each feeding of free water. Total free water will be 600 ml/24 hr. Will continue to use [place] 10 mg that he chronically uses for pain however will also have IV morphine available for acute breakthrough pain. At midnight we will make patient nothing by mouth for probable surgery tomorrow 10/08. Continue with Keppra 500mg BID for seizure prophylaxis. Will monitor post-op CBC routinely to evaluation for postop anemia At time of discharge medical care is to return to PCP Dr Jarrett 10/08/16 Given acute hypotension post-operatively. Will given 500 ML NS W/O pressure bag. Then continues NS at 125 ml/hr. Monitor weight and respiratory status given amount of IV fluid he received during surgery. Monitor for fluid overload. Stat H&H is obtained and Hgb was found to be 7.4. Crossmatch 1 unit of packed RBC to transfuse now. Will continue to follow serial Hgb closely. Will place Inderal on hold given hypotension. [place] as needed for pain control. Will need to ender caution with IV narcotics given Hypotension. Orthopedic care as per Dr Diaz Patient will require 30 days of post-op anticoagulation. Scheduled to start Lovenox this evening. Will discuss further plan of care with attending, Dr Navarro 10/09/16 Hypotension-Blood pressure stabilized overnight with high-volume fluids and one unit of blood cells yesterday. Acute blood loss anemia-Hemoglobin lower today than post transfusion and likely to drop-additional transfusion today with posttransfusion hemoglobin pending. Periprosthetic fracture-s/p left hemiarthroplasty with fixation 10/08/16; nonweightbearing LLE. IV Dilaudid or [place] for pain control. History CVA with left hemiparesis/dysphasia-patient reports that he is permitted to eat pured food that nursing facility, speech therapy to evaluate. Continue tube feedings at present and swabs for oral comfort. Tachycardia/decreased urine output-urine output improving today, low-grade tachycardia consistent with anemia. Continue to monitor. 10/10/16 Continue with Lortab elixir and Dilaudid as needed for pain control In light of mild tachycardia will resume home dose of propranolol 10 milligrams twice a day. On at her for evidence of hypotension. Continue to monitor hemoglobins carefully. As patient has had postoperative anemia and did require 3 units of packed red blood cells. Hgb this afternoon 7.4, will recheck tomorrow morning Continue with scheduled Keppra for seizure prophylaxis Continue with MiraLAX and milk of magnesia for postoperative bowel motivation Encourage work with PT and OT for postoperative strengthening 10/11/16 Given continued decrease in Hgb and hypotension will give blood transfusion of 1 unit of PRBCs today. Will follow serial Hgb closely. Given elevation in temperature this morning, urinalysis and chest x-ray were recheck and were both found to be negative. Of anoxic subcutaneous daily for postoperative DVT prophylaxis. Patient will need 30 days total with last dose being 11/07/16 Continue with bladder retraining. May be able to DC saeed cath later today Continue to monitor blood pressures. Patient is slightly hypotensive today. Keppra twice a day for seizure prophylaxis Continue with Lortab elixir via feeding tube for pain control. Will recheck CBC and BMP tomorrow morning MENA RAINES Oct 12, 2016 08:06
[2016-10-12] MEDS ORDERED: BISACODYL 10 MG SUPPOSITORY RECTALLY ONE (08:15)
[2016-10-12] MEDS: NORMAL SALINE 1,000 ML IV SCH (09:10)
[2016-10-12] MEDS: ASPIRIN *EC* 325mg TABLET PO SCH ×2 (09:28→22:08)
[2016-10-12] MEDS: PROPRANOLOL 10 MG TABLET PEG SCH ×2 (09:28→22:08)
[2016-10-12] MEDS: LEVETIRACETAM 500 MG/5 ML PEG SCH ×2 (09:28→22:07)
[2016-10-12] MEDS: GABAPENTIN 300 MG CAPSULE PEG SCH ×3 (09:28→22:07)
[2016-10-12] MEDS: POLYETHYL.GLYCOL 3350 PACKET 17gm PEG SCH ×2 (09:28→17:06)
[2016-10-12] MEDS: PAROXETINE 20 MG TABLET PEG SCH (09:28)
--- NOTE | 2016-10-12 10:43 | NUR ---
VLAD CM IN TO VISIT WITH PT. HE IS ALERT AND ORIENTED. HE IS MADE AWARE THAT RETURN TO [facility] IS POSSIBLE TOMORROW. VLAD SPOKE WITH HIS MOTHER, ARIADNE, VIA TELEPHONE TO UPDATE HER ON DC PLAN. VM IS LEFT FOR JAMEY AT [facility] TO UPDATE HER WITH THIS INFORMATION.
--- NOTE | 2016-10-12 15:29 | PNPDOC ---
Subjective Date DATE: 10/12/16 TIME: 15:20 Subjective F/U: Periprosthetic hip fracture Doing okay. Notes left hip pain comes and goes. Pain meds help, but some nausea with them. Breathing well-not feeling SOA or having cough/congestion. No chest pain. Urinating well now that saeed out. Objective Vital Signs Vital signs Vital Signs Date Time Temp Pulse Resp B/P Pulse Ox O2 Delivery O2 Flow Rate FiO2 10/12/16 11:39 98.7 84 18 105/72 98 Room Air 10/09/16 07:58 1.00 Height (Feet): 6 Height (Inches): 0.00 Weight (Kilograms): 83.900 General General Appearance: Alert, Well Nourished, Well Developed, Looks Stated Age Eyes (Brief) Eyes: FOUND: EOMI, PERRL, NOT FOUND: scleral icterus ENMT (Brief) ENMT: FOUND: hearing intact, mucosa moist Neck (Brief) Neck: FOUND: midline, NOT FOUND: nuchal rigidity, spasm Respiratory (Brief) Respiratory: FOUND: clear all silver, equal bilaterally, NOT FOUND: rales, wheezes Cardiovascular (Brief) Cardiac: FOUND: regular rate, regular rhythm, NOT FOUND: pedal edema Abdomen (Brief) Abdominal: FOUND: BS normo active x4, soft, NOT FOUND: distended, tender Extremities (Brief) Extremity : Side: Bilateral Extremity: leg Extremity Finding: FOUND: other (scd), NOT FOUND: edema Musculoskeletal (Brief) Musculoskeletal: FOUND: loss of motion (Left hip ) Integumentary (Brief) Integumentary: FOUND: dry, warm Neurologic (Brief) Neurological: FOUND: cranial 2-12 intact, motor (left weakness from prior stroke. ) Psychiatric (Brief) Psychiatric: FOUND: alert, attentive, normal affect Laboratory Laboratory Laboratory Tests 10/11/16 04:28 10/12/16 04:39 Laboratory Tests 10/11/16 04:28 10/11/16 15:24 10/12/16 04:39 Assessment & Plan Problems: (1) Periprosthetic fracture around internal prosthetic left hip joint, initial encounter Status: Acute (2) Postoperative anemia Status: Acute (3) Hypotension Status: Resolved Assessment & Plan: Postop (4) Hemiparesis affecting left side as late effect of cerebrovascular accident ( CVA) Onset Date: 04/27/2016 Status: Chronic (5) Dysphagia following cerebrovascular accident (CVA) Onset Date: 04/27/2016 Status: Chronic (6) Anemia Status: Chronic (7) Gait instability Status: Chronic (8) Chronic constipation Status: Chronic (9) HTN (hypertension) Status: Chronic Plan/Intensity of Service IVF stopped this morning - continue with tube feeding. Continue pain control. Therapy to help functional status - ortho recommends non weight bearing of left leg. Encourage IS and deep breathing. Lovenox stopped by ortho secondary to persistent anemia and need for blood transfusion. Recommend ASA 325mg BID for 6 weeks post op. Recheck CBC in am due to anemia. Anticipate discharge to skilled tomorrow if continues to due well. Case discussed with CM and Family. Time spent with pt care 35 minutes. DVT Prophylaxis: SCD'S, other (ASA 325 BID) Code Status Full Code Hospital Course Summary Disclaimer The hospital course summary below is not to be considered part of the above Progress Note. Hospital Course Summary 10/07 Admit patient to inpatient status under the care of Dr. Navarro for fall with acute periprosthetic fracture of the left hip. Consultation is placed to Dr. Diaz and the orthopedic team for further with evaluation and treatment. Medical screening including CBC, BMP, urinalysis, EKG and chest x-ray. IV lock in place for pain control NPO with Tube feedings only. Tube Feeding management including Jevity 1.5 calorie, 270 mL 5 times a day, and 60 ML before and after each feeding of free water. Total free water will be 600 ml/24 hr. Will continue to use [place] 10 mg that he chronically uses for pain however will also have IV morphine available for acute breakthrough pain. At midnight we will make patient nothing by mouth for probable surgery tomorrow 10/08. Continue with Keppra 500mg BID for seizure prophylaxis. Will monitor post-op CBC routinely to evaluation for postop anemia At time of discharge medical care is to return to PCP Dr Jarrett 10/08/16 Given acute hypotension post-operatively. Will given 500 ML NS W/O pressure bag. Then continues NS at 125 ml/hr. Monitor weight and respiratory status given amount of IV fluid he received during surgery. Monitor for fluid overload. Stat H&H is obtained and Hgb was found to be 7.4. Crossmatch 1 unit of packed RBC to transfuse now. Will continue to follow serial Hgb closely. Will place Inderal on hold given hypotension. [place] as needed for pain control. Will need to ender caution with IV narcotics given Hypotension. Orthopedic care as per Dr Diaz Patient will require 30 days of post-op anticoagulation. Scheduled to start Lovenox this evening. Will discuss further plan of care with attending, Dr Navarro 10/09/16 Hypotension-Blood pressure stabilized overnight with high-volume fluids and one unit of blood cells yesterday. Acute blood loss anemia-Hemoglobin lower today than post transfusion and likely to drop-additional transfusion today with posttransfusion hemoglobin pending. Periprosthetic fracture-s/p left hemiarthroplasty with fixation 10/08/16; nonweightbearing LLE. IV Dilaudid or [place] for pain control. History CVA with left hemiparesis/dysphasia-patient reports that he is permitted to eat pured food that nursing facility, speech therapy to evaluate. Continue tube feedings at present and swabs for oral comfort. Tachycardia/decreased urine output-urine output improving today, low-grade tachycardia consistent with anemia. Continue to monitor. 10/10/16 Continue with Lortab elixir and Dilaudid as needed for pain control In light of mild tachycardia will resume home dose of propranolol 10 milligrams twice a day. On at her for evidence of hypotension. Continue to monitor hemoglobins carefully. As patient has had postoperative anemia and did require 3 units of packed red blood cells. Hgb this afternoon 7.4, will recheck tomorrow morning Continue with scheduled Keppra for seizure prophylaxis Continue with MiraLAX and milk of magnesia for postoperative bowel motivation Encourage work with PT and OT for postoperative strengthening 10/11/16 Given continued decrease in Hgb and hypotension will give blood transfusion of 1 unit of PRBCs today. Will follow serial Hgb closely. Given elevation in temperature this morning, urinalysis and chest x-ray were recheck and were both found to be negative. Of anoxic subcutaneous daily for postoperative DVT prophylaxis. Patient will need 30 days total with last dose being 11/07/16 Continue with bladder retraining. May be able to DC saeed cath later today Continue to monitor blood pressures. Patient is slightly hypotensive today. Keppra twice a day for seizure prophylaxis Continue with Lortab elixir via feeding tube for pain control. Will recheck CBC and BMP tomorrow morning 10/12 Doing okay. Notes left hip pain comes and goes. Pain meds help, but some nausea with them. Breathing well-not feeling SOA or having cough/congestion. No chest pain. Urinating well now that Saeed out. HGB 8.3 this morning. IVF stopped this morning - continue with tube feeding. Continue pain control. Therapy to help functional status - ortho recommends non weight bearing of left leg. Encourage IS and deep breathing. Lovenox stopped by ortho secondary to persistent anemia and need for blood transfusion. Recommend ASA 325mg BID for 6 weeks post op. Recheck CBC in am due to anemia. Anticipate discharge to skilled tomorrow if continues to due well. ISHAN PORTILLO MD Oct 12, 2016 15:23
--- NOTE | 2016-10-12 16:30 | NUR ---
update report received from gerry rn for continued care. Pt is awake and a&ox2, pts family is at bedside. complains of hip pain , rates as a 6/10. will continue to monitor and will administer pain medication as ordered prn.
[2016-10-13] VITALS: BP 123/75; PULSE 95; RESP 18; TEMP 97.1; O2SAT 97
[2016-10-13] MEDS: NOZIN NASAL SWAB NS SCH ×2 (02:12→08:39)
--- NOTE | 2016-10-13 02:40 | NUR ---
STATUS PATIENT WAS NOT ABLE TO URINATE .NOTIFIED DR MAR VIA TIGER TEXT. STRAIGHT CATHETER 1525 ML CLEAR STRAW COLOR URINE OUT.PATIENT TOLERATED WELL. RECHECK [address] REYNOLDS. CONTINUE TO MONITOR.
--- NOTE | 2016-10-13 03:42 | NUR ---
Chart Check 24 hour chart check completed
[2016-10-13 04:00] VITALS: BP 129/78; PULSE 107; RESP 22; TEMP 97.5; O2SAT 96
[2016-10-13 05:21] LABS: HCT - HEMATOCRIT 26.9 % (41-53); HGB - HEMOGLOBIN 8.8 GM/DL (13.5-17.5); MEAN CORPUSCULAR HGB 29.4 UUG (26-34); MEAN CORPUSCULAR HGB CONC(MCHC 32.7 GM/DL (31-37); MEAN PLATELET VOLUME 10.6 UM3 (9.4-12.4); RED BLOOD COUNT 2.99 M/MM3 (4.50-5.90); WBC - WHITE BLOOD COUNT 11.3 T/MM3 (4.5-11.0)
--- NOTE | 2016-10-13 05:42 | NUR ---
STATUS PATIENT ALERT TO PERSON AND TIME. PATIENT C/O PAIN AT LT HIP.PRN LORTAB ELIXIR WAS ADMINISTRATED FOR PAIN. ON ROOM AIR . VSS. PATIENT HAD INCONTINENT BM X2 DURING NIGHT. TUBE FEEDING DONE VIA GRAVITY WITH NUTREN 2.0. PATIENT HAD NO URINATED YET SINCE LAST STRAIGHT CATHETER. ICE PAD APPLIED TO LT HIP. BED ALARM ON .CALL LIGHT WITHIN REACH.CONTINUE TO MONITOR.
--- NOTE | 2016-10-13 06:37 | NUR ---
REFUSE TUBE FEEDING PATIENT ASKED RN TO PUT CLOTH ON HIM.HE STATED"I AM GOING BACK TO [facility]."PATIENT DON'T WANT TUBE FEEDING NOW.PATIENT STATED" I WILL EAT AT [facility]." PATIENT USED URINAL TO VOID 50ML URINE AT THIS TIME.CONTINUE TO MONITOR.
[2016-10-13 08:00] VITALS: PULSE 94; RESP 18
--- NOTE | 2016-10-13 08:09 | PDORTHOPN ---
Subjective Date DATE: 10/13/16 TIME: 08:07 Subjective S/P revision left hip endo for jose-prosthetic fx 10/08/16. Héctor states he is feeling okay today and is ready to return to the care home. He states he feels constipated. He did have 2 BMs yesterday according to nursing in the room. He denies feeling bloated, or vomiting. Objective Vital Signs Vital signs Vital Signs 10/13/16 10/13/16 00:00 04:00 Temp 97.1 97.5 Pulse 95 107 Resp 18 22 B/P 123/75 129/78 Pulse Ox 97 96 O2 Delivery Room Air Room Air Height (Feet): 6 Height (Inches): 0.00 Weight (Kilograms): 83.900 General General Appearance: Alert, Well Nourished, Well Developed, No Acute Distress Respiratory (Brief) Respiratory Brief: FOUND: non-labored Cardiovascular (Brief) Cardiac: FOUND: calf soft, nontender, pedal pulses intact Abdomen (Brief) Abdominal Brief: FOUND: non-tender Musculoskeletal (Brief) Hip: FOUND ER-limited, FOUND IR-limited, FOUND decreased ROM(flexion) Surgical Site Incision: FOUND: Mepilex dressing intact (dressing changed.), bloody drainage present (Small amount of bloody drainage on distal part of the dressing.), clean , dry, intact Integumentary (Brief) Integumentary Brief: FOUND dry, FOUND pink, FOUND warm Neurologic (Brief) Neurological Brief: FOUND: extremities w/o deficits, neuro intact Psychiatric (Brief) Psychiatric Brief: FOUND: alert, no acute distress Laboratory Laboratory Laboratory Tests 10/11/16 15:24 10/12/16 04:39 10/13/16 04:16 Laboratory Tests 10/12/16 04:39 Assessment & Plan Problems: (1) Periprosthetic fracture around internal prosthetic left hip joint, initial encounter Status: Acute Assessment & Plan: S/P left hip endo revision 10/08 Continue pain control Monitor labs. NON weight bearing on left leg. Will get CXR in view of fever and increased RR. F/U in ortho clinic as scheduled. Anticoagulant has been discussed with Dr. Diaz. In an effort to decrease risk of bleeding but still provide adequate DVT prophylaxis Dr. Diaz has recommended discontinuing Lovenox and starting Aspirin 325 PO BID. Mr. Valencia will need to complete a 6 week course. I did confirm with the nursing staff that PO route would work with his dysphasia and he was able to take the medication. Hospital Course Summary Disclaimer The visit summary below is not to be considered part of the above Progress Note. Hospital Course 10/07 Admit patient to inpatient status under the care of Dr. Navarro for fall with acute periprosthetic fracture of the left hip. Consultation is placed to Dr. Diaz and the orthopedic team for further with evaluation and treatment. Medical screening including CBC, BMP, urinalysis, EKG and chest x-ray. IV lock in place for pain control NPO with Tube feedings only. Tube Feeding management including Jevity 1.5 calorie, 270 mL 5 times a day, and 60 ML before and after each feeding of free water. Total free water will be 600 ml/24 hr. Will continue to use [place] 10 mg that he chronically uses for pain however will also have IV morphine available for acute breakthrough pain. At midnight we will make patient nothing by mouth for probable surgery tomorrow 10/08. Continue with Keppra 500mg BID for seizure prophylaxis. Will monitor post-op CBC routinely to evaluation for postop anemia At time of discharge medical care is to return to PCP Dr Jarrett 10/08/16 Given acute hypotension post-operatively. Will given 500 ML NS W/O pressure bag. Then continues NS at 125 ml/hr. Monitor weight and respiratory status given amount of IV fluid he received during surgery. Monitor for fluid overload. Stat H&H is obtained and Hgb was found to be 7.4. Crossmatch 1 unit of packed RBC to transfuse now. Will continue to follow serial Hgb closely. Will place Inderal on hold given hypotension. [place] as needed for pain control. Will need to ender caution with IV narcotics given Hypotension. Orthopedic care as per Dr Diaz Patient will require 30 days of post-op anticoagulation. Scheduled to start Lovenox this evening. Will discuss further plan of care with attending, Dr Navarro 10/09/16 Hypotension-Blood pressure stabilized overnight with high-volume fluids and one unit of blood cells yesterday. Acute blood loss anemia-Hemoglobin lower today than post transfusion and likely to drop-additional transfusion today with posttransfusion hemoglobin pending. Periprosthetic fracture-s/p left hemiarthroplasty with fixation 10/08/16; nonweightbearing LLE. IV Dilaudid or [place] for pain control. History CVA with left hemiparesis/dysphasia-patient reports that he is permitted to eat pured food that nursing facility, speech therapy to evaluate. Continue tube feedings at present and swabs for oral comfort. Tachycardia/decreased urine output-urine output improving today, low-grade tachycardia consistent with anemia. Continue to monitor. 10/10/16 Continue with Lortab elixir and Dilaudid as needed for pain control In light of mild tachycardia will resume home dose of propranolol 10 milligrams twice a day. On at her for evidence of hypotension. Continue to monitor hemoglobins carefully. As patient has had postoperative anemia and did require 3 units of packed red blood cells. Hgb this afternoon 7.4, will recheck tomorrow morning Continue with scheduled Keppra for seizure prophylaxis Continue with MiraLAX and milk of magnesia for postoperative bowel motivation Encourage work with PT and OT for postoperative strengthening 10/11/16 Given continued decrease in Hgb and hypotension will give blood transfusion of 1 unit of PRBCs today. Will follow serial Hgb closely. Given elevation in temperature this morning, urinalysis and chest x-ray were recheck and were both found to be negative. Of anoxic subcutaneous daily for postoperative DVT prophylaxis. Patient will need 30 days total with last dose being 11/07/16 Continue with bladder retraining. May be able to DC saeed cath later today Continue to monitor blood pressures. Patient is slightly hypotensive today. Keppra twice a day for seizure prophylaxis Continue with Lortab elixir via feeding tube for pain control. Will recheck CBC and BMP tomorrow morning 10/12 Doing okay. Notes left hip pain comes and goes. Pain meds help, but some nausea with them. Breathing well-not feeling SOA or having cough/congestion. No chest pain. Urinating well now that Saeed out. HGB 8.3 this morning. IVF stopped this morning - continue with tube feeding. Continue pain control. Therapy to help functional status - ortho recommends non weight bearing of left leg. Encourage IS and deep breathing. Lovenox stopped by ortho secondary to persistent anemia and need for blood transfusion. Recommend ASA 325mg BID for 6 weeks post op. Recheck CBC in am due to anemia. Anticipate discharge to skilled tomorrow if continues to due well. MENA RAINES Oct 13, 2016 08:09
[2016-10-13] MEDS: PROPRANOLOL 10 MG TABLET PEG SCH (08:38)
[2016-10-13] MEDS: LEVETIRACETAM 500 MG/5 ML PEG SCH (08:38)
[2016-10-13] MEDS: GABAPENTIN 300 MG CAPSULE PEG SCH (08:38)
[2016-10-13] MEDS: PAROXETINE 20 MG TABLET PEG SCH (08:38)
[2016-10-13] MEDS: ASPIRIN *EC* 325mg TABLET PO SCH (08:38)
[2016-10-13] MEDS: POLYETHYL.GLYCOL 3350 PACKET 17gm PEG SCH (08:39)
[2016-10-13] MEDS: HYDROCODONE-APAP 2.5mg-108mg/5ml ELIXIR PEG PRN (08:41)
[2016-10-13 08:54] VITALS: BP 124/82; PULSE 94; RESP 18; TEMP 99.3; O2SAT 95
[2016-10-13] MEDS ORDERED: CALCIUM 600mg + VIT D 400 TABLET PO SCH (09:00)
--- NOTE | 2016-10-13 09:01 | CONSPD ---
Consultation Info Date DATE: 10/13/16 TIME: 08:[address] Diaz Reason for Consultation: Evaluate bone health Impression/Recommendation Impression/Recommendation: (1) Periprosthetic fracture around internal prosthetic left hip joint, initial encounter Status: Acute Recommendation: S/P left hip endo revision 10/08 Continue pain control Monitor labs. NON weight bearing on left leg. Will get CXR in view of fever and increased RR. F/U in ortho clinic as scheduled. Anticoagulant has been discussed with Dr. Diaz. In an effort to decrease risk of bleeding but still provide adequate DVT prophylaxis Dr. Diaz has recommended discontinuing Lovenox and starting Aspirin 325 PO BID. Mr. Valencia will need to complete a 6 week course. I did confirm with the nursing staff that PO route would work with his dysphasia and he was able to take the medication. (2) Osteopenia Status: Chronic Recommendation: Will contact Dr Jarrett and start Ca+D. Ortho HPI HPI Elements HPI This is a 55 year old male who resides at [facility] in [place]. He is status post a left hip endoprosthesis by Dr. Diaz on 06/20/16. He was seen in our clinic as recently as 10/04/16 at which time x-rays were taken confirming a well seated left endoprosthesis. He is a marginal ambulator at best secondary to left sided weakness from a stroke sustained on 04/27/16. He has residual dysphasia as well. Héctor states he fell asleep in his wheelchair at the group home after his visit on 10/04/16 and fell out of his wheelchair causing left hip pain. Apparently, no X-rays were completed until today, which revealed a periprosthetic hip fracture on the left. Dr. Diaz was contacted for definitive surgical treatment and agreed to be the advertising sales consultant. Dr. Chau agreed to be the admitting physician. Héctor presently locates pain in the left hip, worse with activity, better with rest and immobilization and narcotics. Review of Systems Constitutional: DENIES: chills, dizziness, fever, weakness Cardiovascular DENIES: chest pain Rhythm/Rate: DENIES: irregular beat Vascular: DENIES: intermittent claudication, pallor of an extremity Pulmonary Respiratory: DENIES: cough, sputum GI Upper Abdomen: DENIES: pain Lower Abdomen: DENIES: blood in stool General: DENIES: dysuria, pain Musculoskeletal General: joint pain (left hip pain), pain (Left hip pain), see HPI Integumentary Skin: DENIES: rash Neurological General: numbness, weakness (known left sided stroke) Endocrine DENIES: heat/cold intolerance Hematologic/Lymphatic DENIES: easy bruising All Other Systems Reviewed Past Medical History Adult Past Medical History Patient History: (1) HTN (hypertension) (2) Chronic constipation (3) Gait instability (4) Dysphagia following cerebrovascular accident (CVA) Onset Date: 04/27/2016 (5) Hemiparesis affecting left side as late effect of cerebrovascular accident ( CVA) Onset Date: 04/27/2016 Problem List Updates History of acute CVA.-04/2016 Left hemiparesis- chronic since CVA Chronic dysphagia. PEG tube presence Hypertension. Hx of alcohol and tobacco dependence Surgical History Patient's Surgical History: Left Hemiarthroplasty- 06/22/16- Dr Diaz PEG Tube placement 2016 Hernia repair Current Medications Acetaminophen (Acetaminophen) 650 Mg/20.3 Ml Solution, 650 MG PEG Q6H PRN for PAIN/AIR HUNGER, (Reported) Last Taken: Unknown Dose on 10/06/16 Diclofenac Sodium (Voltaren) 100 Gm Gel..gram., 1 APPLIC TOP TID, (Reported) Gabapentin (Gabapentin) 300 Mg Capsule, 300 MG PEG TID, (Reported) Last Taken: Unknown Dose on 10/07/16 0400 Guaifenesin (Cough Syrup) 100 Mg/5 Ml Liquid, 10 ML PEG Q4HR PRN for COUGH, (Reported) Last Taken: Unknown Dose on Unknown Date & Time Hydrocodone/Acetaminophen ( [place] 10-325 Tablet) 10-325 Tablet, 1 TAB PEG Q6H PRN for PAIN, (Reported) Last Taken: Unknown Dose on 10/07/16 Hypromellose (Isopto Tears) 150 Drop/15 Ml Drops, 1 DROP OP PRN, (Reported) Last Taken: UNKNOWN on Unknown Date & Time Lactose-Reduced Food/Fiber ( Jevity 1.5 Chris Liquid) 237 Ml Liquid, 270 ML PEG QID, (Reported) Last Taken: 1 CAN on 10/07/16 0600 Levetiracetam (Levetiracetam) 500 Mg/5 Ml Solution, 5 ML PEG BID, (Reported) Last Taken: Unknown Dose on 10/07/16 0800 Magnesium Hydroxide (Milk of Magnesia) 400 Mg/5 Ml Oral.susp, 30 ML PEG BID PRN for CONSTIPATION/STOOL SOFTENING, (Reported) Last Taken: Unknown Dose on 10/03/16 Menthol (Biofreeze) 118 Ml Gel..ml., 1 APPLIC TOP PRN, (Reported) Last Taken: 1 APPLIC on 10/06/16 1340 Paroxetine HCl (Paroxetine HCl) 20 Mg Tablet, 20 MG PO DAILY, (Reported) Last Taken: Unknown Dose on 10/07/16 0800 Propranolol HCl (Propranolol HCl) 10 Mg Tablet, 10 MG PEG BID, (Reported) Last Taken: Unknown Dose on 10/07/16 0800 Allergies Allergies: Coded Allergies: No Known Drug Allergies (Verified Allergy, Unknown, 06/20/16) Family History Family History: Father with renal failure. Brother with CVA Vaccines No Social History Smoking Status: Former smoker Does patient use chewing tobac: No Second Hand Exposure: No Substance Use Type: does not use Alcohol Intake: former alcohol drinker Marital Status: Housing: group home ([facility]) Current Occupational Status: previously employed Advance Directives: Yes DPOA for Healthcare Only, Yes Full Code Physical Exam General General: well nourished, well developed, no acute distress Respiratory FOUND non-labored Cardiovascular FOUND pedal pulses intact Capillary Refill: <2 sec Abdomen Abdominal: FOUND soft, NOT FOUND tender Musculoskeletal Musculoskeletal : Hip: FOUND ER-limited, FOUND IR-limited, FOUND decreased ROM(flexion) Integumentary FOUND dry, FOUND pink, FOUND warm Neurologic FOUND intact to light touch Laboratory Laboratory Tests Test 10/13/16 04:16 White Blood Count 11.3T/MM3 Red Blood Count 2.99M/MM3 Hemoglobin 8.8GM/DL Hematocrit 26.9% Mean Corpuscular Volume 90.0UM3 Mean Corpuscular Hemoglobin 29.4UUG Mean Corpuscular Hemoglobin Concent 32.7GM/DL RDW Standard Deviation 48.0FL Platelet Count 409T/MM3 Mean Platelet Volume 10.6UM3 Case Report- BMD Demographics Date of Initial Screening: Oct 13, 2016 Age 55 Gender: Male Race White Height (Feet): 6 Height (Inches): 0.00 Weight (Kilograms): 83.900 Site of Current Fracture Lower Limb: thigh-femoral shaft Fracture History History of fracture age 50 or: Yes Fracture History: proximal femur Age at time of fractures 55 Risk Factors History of Rheumatoid Arthriti: No Secondary Osteoporosis d/t con: Yes (L sided CVA) Treatment/Counseling Calcium 1200 mg/day (in divide: yes Vitamin D at least 800-1000 IU: yes Regular Weight Bearing and Mus: yes Fall Prevention: yes Smoking Cessation: yes Alcohol Comsumption (no more t: yes Pharmacologic Treatment Recomend Pharmacologic Therapy: No Therapy not recommended due to: bone health assessment ongoing Pharmacologic Therapy Initiate: No Reason Not Initiating Therapy: tx planned for near future Bone Mineral Density Testing Was BMD Testing Recommended?: Yes BMD Testing: planned/scheduled Written Communication Was pt provided with a letter: Yes Letter Provided to pts PCP?: Yes Discharge Status: discharge to extended care facility Additional Information Comments Patient used to smoke and drank heavily. No longer does either. Do to L sided CVA is confined to [facility] in [place] GRANT MERCADO MD Oct 13, 2016 08:58
--- NOTE | 2016-10-13 10:40 | NUR ---
VLAD CM IN TO VISIT WITH PT. HE IS MADE AWARE THAT DC IS PLANNED FOR TODAY. THIS INFORMATION IS GIVEN TO PT MOTHER, ARIADNE AND JAMEY AT [facility]. [facility]AD REQUESTS THAT FACILITY BRING WC FOR TRANSPORT. Addendum: 10/13/16 at 1042 by KAL URENA RN Amended: Links added.
[2016-10-13] MEDS ORDERED: PARO-38 PEG (11:23)
[2016-10-13] MEDS ORDERED: ASPI325T PEG (11:23)
[2016-10-13] MEDS ORDERED: [UNRECOGNIZED DRUG - CODE] PEG (11:23)
[2016-10-13] MEDS ORDERED: BISA10SU8 RECTALLY (11:23)
[2016-10-13] MEDS ORDERED: POLY17PO18 PEG (11:23)
[2016-10-13] MEDS ORDERED: CALC-747 PEG (11:23)
[2016-10-13] MEDS ORDERED: TAMS-1 PEG (11:23)
--- NOTE | 2016-10-13 11:24 | PNPDOC ---
Subjective Date DATE: 10/13/16 TIME: 11:07 Subjective F/U: Periprosthetic hip fracture Doing well. Breathing without SOA or cough/congestion. No chest pressure or pain. Note hip pain, varies - using ice pack which helps. No nausea or ab pain. Bowel moving. Hemoglobin stable. Nursing reports urinary retention - urinates, but not emptying bladder. Objective Vital Signs Vital signs Vital Signs Date Time Temp Pulse Resp B/P Pulse Ox O2 Delivery O2 Flow Rate FiO2 10/13/16 08:54 99.3 94 18 124/82 95 Room Air 10/09/16 07:58 1.00 Height (Feet): 6 Height (Inches): 0.00 Weight (Kilograms): 83.900 General General Appearance: Alert, Well Nourished, Well Developed, Looks Stated Age Eyes (Brief) Eyes: FOUND: EOMI, PERRL, NOT FOUND: scleral icterus ENMT (Brief) ENMT: FOUND: hearing intact, mucosa moist Neck (Brief) Neck: FOUND: midline, NOT FOUND: nuchal rigidity, spasm Respiratory (Brief) Respiratory: FOUND: clear all silver, equal bilaterally, other (No distress ), NOT FOUND: rales, wheezes Cardiovascular (Brief) Cardiac: FOUND: regular rate, regular rhythm, NOT FOUND: pedal edema Abdomen (Brief) Abdominal: FOUND: BS normo active x4, soft, NOT FOUND: distended, tender (Brief) Male: FOUND: other (Saeed in place. ) Extremities (Brief) Extremity : Side: Bilateral Extremity: leg Extremity Finding: FOUND: other (SCD ), NOT FOUND: edema Musculoskeletal (Brief) Musculoskeletal: FOUND: loss of motion (Left side ), NOT FOUND: spasm Integumentary (Brief) Integumentary: FOUND: dry, warm Neurologic (Brief) Neurological: FOUND: cranial 2-12 intact, motor (Left weakness ) Psychiatric (Brief) Psychiatric: FOUND: alert, normal affect Laboratory Laboratory Laboratory Tests 10/12/16 04:39 Laboratory Tests 10/11/16 15:24 10/12/16 04:39 10/13/16 04:16 Assessment & Plan Problems: (1) Periprosthetic fracture around internal prosthetic left hip joint, initial encounter Status: Acute (2) Postoperative anemia Status: Acute (3) Urinary retention Status: Acute (4) Hypotension Status: Resolved Assessment & Plan: Postop (5) Hemiparesis affecting left side as late effect of cerebrovascular accident ( CVA) Onset Date: 04/27/2016 Status: Chronic (6) Dysphagia following cerebrovascular accident (CVA) Onset Date: 04/27/2016 Status: Chronic (7) Anemia Status: Chronic (8) Gait instability Status: Chronic (9) Chronic constipation Status: Chronic (10) HTN (hypertension) Status: Chronic Plan/Intensity of Service Saeed placed to DD - will start Flomax 0.4mg at night. Have F/U with Dr Schafer in 1 week for urological evaluation. Continue IS and deep breathing to help respiratory status. Continue ASA 325mg BID for 6 weeks post op for DVT prevention - Lovenox stopped secondary to anemia. Will D/C to skilled care at [facility] - see orders for details. Case discussed with CM and nursing. Time spent with pt care and discharge greater than 35 minutes. DVT Prophylaxis: SCD'S Code Status Full Code Hospital Course Summary Disclaimer The hospital course summary below is not to be considered part of the above Progress Note. Hospital Course Summary 10/07 Admit patient to inpatient status under the care of Dr. Navarro for fall with acute periprosthetic fracture of the left hip. Consultation is placed to Dr. Diaz and the orthopedic team for further with evaluation and treatment. Medical screening including CBC, BMP, urinalysis, EKG and chest x-ray. IV lock in place for pain control NPO with Tube feedings only. Tube Feeding management including Jevity 1.5 calorie, 270 mL 5 times a day, and 60 ML before and after each feeding of free water. Total free water will be 600 ml/24 hr. Will continue to use [place] 10 mg that he chronically uses for pain however will also have IV morphine available for acute breakthrough pain. At midnight we will make patient nothing by mouth for probable surgery tomorrow 10/08. Continue with Keppra 500mg BID for seizure prophylaxis. Will monitor post-op CBC routinely to evaluation for postop anemia At time of discharge medical care is to return to PCP Dr Jarrett 10/08/16 Given acute hypotension post-operatively. Will given 500 ML NS W/O pressure bag. Then continues NS at 125 ml/hr. Monitor weight and respiratory status given amount of IV fluid he received during surgery. Monitor for fluid overload. Stat H&H is obtained and Hgb was found to be 7.4. Crossmatch 1 unit of packed RBC to transfuse now. Will continue to follow serial Hgb closely. Will place Inderal on hold given hypotension. [place] as needed for pain control. Will need to ender caution with IV narcotics given Hypotension. Orthopedic care as per Dr Diaz Patient will require 30 days of post-op anticoagulation. Scheduled to start Lovenox this evening. Will discuss further plan of care with attending, Dr Navarro 10/09/16 Hypotension-Blood pressure stabilized overnight with high-volume fluids and one unit of blood cells yesterday. Acute blood loss anemia-Hemoglobin lower today than post transfusion and likely to drop-additional transfusion today with posttransfusion hemoglobin pending. Periprosthetic fracture-s/p left hemiarthroplasty with fixation 10/08/16; nonweightbearing LLE. IV Dilaudid or [place] for pain control. History CVA with left hemiparesis/dysphasia-patient reports that he is permitted to eat pured food that nursing facility, speech therapy to evaluate. Continue tube feedings at present and swabs for oral comfort. Tachycardia/decreased urine output-urine output improving today, low-grade tachycardia consistent with anemia. Continue to monitor. 10/10/16 Continue with Lortab elixir and Dilaudid as needed for pain control In light of mild tachycardia will resume home dose of propranolol 10 milligrams twice a day. On at her for evidence of hypotension. Continue to monitor hemoglobins carefully. As patient has had postoperative anemia and did require 3 units of packed red blood cells. Hgb this afternoon 7.4, will recheck tomorrow morning Continue with scheduled Keppra for seizure prophylaxis Continue with MiraLAX and milk of magnesia for postoperative bowel motivation Encourage work with PT and OT for postoperative strengthening 10/11/16 Given continued decrease in Hgb and hypotension will give blood transfusion of 1 unit of PRBCs today. Will follow serial Hgb closely. Given elevation in temperature this morning, urinalysis and chest x-ray were recheck and were both found to be negative. Of anoxic subcutaneous daily for postoperative DVT prophylaxis. Patient will need 30 days total with last dose being 11/07/16 Continue with bladder retraining. May be able to DC saeed cath later today Continue to monitor blood pressures. Patient is slightly hypotensive today. Keppra twice a day for seizure prophylaxis Continue with Lortab elixir via feeding tube for pain control. Will recheck CBC and BMP tomorrow morning 10/12 Doing okay. Notes left hip pain comes and goes. Pain meds help, but some nausea with them. Breathing well-not feeling SOA or having cough/congestion. No chest pain. Urinating well now that Saeed out. HGB 8.3 this morning. IVF stopped this morning - continue with tube feeding. Continue pain control. Therapy to help functional status - ortho recommends non weight bearing of left leg. Encourage IS and deep breathing. Lovenox stopped by ortho secondary to persistent anemia and need for blood transfusion. Recommend ASA 325mg BID for 6 weeks post op. Recheck CBC in am due to anemia. Anticipate discharge to skilled tomorrow if continues to due well. 10/13 Doing well. Breathing without SOA or cough/congestion. No chest pressure or pain. Note hip pain, varies - using ice pack which helps. No nausea or ab pain. Bowel moving. Hemoglobin stable. Nursing reports urinary retention - urinates, but not emptying bladder. Saeed placed to DD - will start Flomax 0.4mg at night. Have F/U with Dr Schafer in 1 week for urological evaluation. Continue IS and deep breathing to help respiratory status. Continue ASA 325mg BID for 6 weeks post op for DVT prevention - Lovenox stopped secondary to anemia. Will D/C to skilled care at [facility] - see orders for details. ISHAN PORTILLO MD Oct 13, 2016 11:11
--- NOTE | 2016-10-13 11:38 | PDOCECFAO ---
Admission Orders Admission Orders Admit to: [facility] Allergies: Coded Allergies: No Known Drug Allergies (Verified Allergy, Unknown, 06/20/16) Admitting Diagnosis Fall, L Hip Pain Admitting Physician Ariel Reyes MD Attending Physician Dr Jarrett Code Status Full Code Anticipated LOS: 30 days or less Rehab Potential: Fair Rehab Prognosis: Fair Wound/Incision Care: NON WEIGHT BEARING L LOWER EXTREMITY May use Facility Protocol /SO: Yes May Have Flu Vaccine: Yes Evaluations/Treat: Speech, PT, OT Senior [facility] Certification I certify that SNF services are required to be given on an Inpatient basis because of the patients need for prison care on a continuing basis for the condition(s) for which he/she received inpatient hospital services prior to his/her transfer to the SNF. SNF inpatient care is necessary for the following reasons Med Admininistration, Teach Med Managment, Other (Skilled PT/OT/Speech to maximize functional status. ) Cardiac or Respiratory Arrest In Event of Arrest: Start CPR,call 911,to ER Resident is Aware of Diagnosis: Yes (MOTHER AWARE) Additional Orders: F/U: Dr Jarrett in 1 week for medical evalution. F/U: Dr Schafer in ~ 1 week for urlogical f/u due to urinary retention/saeed. F/U: Dr Diaz/Panfilo Wayne on 11/01/16 at 0930 for orho eval. F/U: Dr Ordoñez on 12/13/16 at 0900 for bone health eval. CBC in 1 week: Dx - Anemia Routine feeding tube care. DIET: NPO WITH TUBE FEEDING PER PEG. Bolus feedings: Fibersource HN (1.2): 2 (250ml) cartons QID - 75 cc free water flush before and after feeding (150cc with each feeding). Saeed to DD. Dx: urinary retention. Routine saeed care. May use ICE pack to left hip as needed for pain. Use IS 6 times a day for 14 day for pulmonary toilet. ARIEL REYES MD Oct 13, 2016 11:38
[2016-10-13 12:39] VITALS: BP 110/68; PULSE 81; RESP 18; TEMP 97.1; O2SAT 98
--- NOTE | 2016-10-13 12:55 | NUR ---
CM TIME OUT COMPLETED WITH [facility]. TRANSPORT TIME IS 1400.
--- NOTE | 2016-10-13 13:02 | NUR ---
Nutrition F/U Pt tolerating tube feeding of Nutren 2.0 well with minimal residual of 1 ml - 5 ml per day (1x) the past 2 days. Pt receiving Nutren 2.0 (2.0 saul/ml), 1.5 cartons (250 ml/carton) @ 07:00 and 17:00 and 1 carton @ 12:00 and 22:00 with an additional 1360 ml water per 24 hrs. RN states pt refused tube feeding this am. RD spoke with pt regarding the importance of nutrition for healing. Pt agreed to receive the noon tube feeding before discharge. RD available at ext [phone]
--- NOTE | 2016-10-13 18:09 | NUR ---
DISCHARGE PT DISCHARGED TO [facility]. REPORT CALLED DOCUMENTED. PACKET SENT WITH [facility] TRANSPORTATION. PT TRANSFERRED TO WHEELCHAIR WITH SIT TO STAND LIFT. PT SENT WITH [facility].
[2016-10-13] MEDS ORDERED: CALCIUM 600mg + VIT D 400 TABLET PEG SCH (21:00)
--- NOTE | 2016-10-15 15:56 | DSF ---
ADMISSION DIAGNOSIS Periprosthetic fracture around prosthetic hip joint. DISCHARGE DIAGNOSIS Comminuted left proximal femoral periprosthetic fracture. ASSOCIATED CONDITIONS AND COMPLICATIONS Postop anemia. Hemiparesis affecting the left side as late effect of CVA. Dysphagia following CVA. Hypertension. Gait instability. Chronic constipation. Postop hypotension--resolved. CONSULTS Dr. Diaz--Orthopedic Surgery. Dr. Ordoñez--bone health. PT, OT, Speech PROCEDURES 10/08/2016: Left hip revision hemiarthroplasty with fixation of comminuted proximal femur fracture--Dr. Diaz. 10/08/2016: Transfusion of 1 unit packed red cells. 10/09/2016: Transfusion of 2 units packed red cells. 10/11/2016: Transfusion of 1 unit packed red cells. CLINICAL RESUME Patient is a 55-year-old gentleman well known to hospitalist service from prior admission in June secondary to acute left femoral neck fracture. At that time, he underwent left arthroscopy by Dr. Diaz. He has been residing at [facility] in [place], [place], secondary to his chronic comorbidities including acute CVA in 2015, with subsequent left hemiparesis. He does have PEG tube and receives all nutrition as well as medications from this. Patient reports that on Monday (10/05/2016) he was sitting in the wheelchair and fell out of it. He landed on the left side. He was seen by his primary care provider (Dr. Jarrett) yesterday and at that time did undergo radiographic evaluation. It was found that he had a periprosthetic hip fracture. Dr. Navarro was contacted and arrangements for direct admission to [facility] were made. Anticipated length of stay was thought to be greater than two midnights. For complete details of the H&P refer to that document. LABORATORY White blood count is 10.4, with hemoglobin 10.4, hematocrit 31.5, MCV 87.3, and platelets 159,000. Serum sodium is 140, potassium 4.2, chloride 99, CO2 31, BUN 16, with creatinine 0.6, GFR 173, and blood glucose 126. Transaminases are unremarkable. 25 OH vitamin D total was decreased at 12, with 25 OH vitamin D2 less than 7, and 25 OH vitamin D3 12. INR is 1.25. UA is completely unremarkable. Stool for C. difficile toxin B gene is negative. HOSPITAL COURSE Patient was placed in inpatient admission status at [facility] under the hospitalist service. We did consult with Dr. Diaz for orthopedic evaluation and definitive treatment. IV lock was placed. He was made n.p.o., and we utilized tube feedings only during hospitalization. We did continue Bristol for pain control. Also IV morphine was made available for breakthrough discomfort. Keppra was continued for seizure prophylaxis. SCDs were initiated preop for DVT prophylaxis. Dr. Diaz did interview and examine the patient. He reviewed radiographic findings. He discussed risks versus benefit versus alternative therapy to surgical intervention. Informed consent was obtained. On hospital day #1 he was taken to the operating room where he underwent above-noted procedure. Postoperatively he did develop hypotension and required IV fluids. Fluid boluses were given. Lab was obtained and we found hemoglobin to have decreased significantly to 7.4. He was therefore given 1 unit of packed red cells. Hemoglobin was followed. Lovenox was initiated postoperatively. However, patient did require a total of 4 units of packed red cells during the hospitalization. Ultimately, Lovenox was discontinued. We utilized aspirin 325 mg b[address]i.d. in its place. His postop blood pressure did improve. Gradually, pain did decrease and need for Dilaudid lessened as the hospital course went. PT and OT were consulted postoperatively. He made slow gains in functional status. He needs to be nonweightbearing on his left leg. Respiratory status actually did well. We did attempt to remove Mora catheter following several days of bladder retraining. Unfortunately the patient developed urinary retention. Mora catheter was replaced and Flomax was started. In light of his urinary retention, we will see about having Dr. Schafer follow up with him in the outpatient setting. By time of discharge, his hemoglobin had improved to 8.9. Sodium was 137, with potassium 4.3, and creatinine 0.4. He was maintaining saturations well on room air. Blood pressure was stable as was his heart rate. Case Management assisted in helping with discharge arrangements. He will continue to have skilled care for his recovery at [facility]. He was able to be discharged there in stable condition. NARRATIVE DISCLAIMER: Above narrative is a brief summary of the patient's hospitalization. For complete details of the hospital course, refer to the medical record. DISCHARGE CONDITION Stable/good. DIET N.P.O.--tube feeding dependent Tube feeding: FiberSource 1.2 two cans (500 mL) q.i.d. during waking hours. Flush with 75 mL free water before and after feeding (150 mL with each feeding). ACTIVITIES Nonweightbearing on left leg. MEDICATIONS Aspirin 325 mg per PEG b.i.d. for DVT prophylaxis--last dose 11/19/2016. Dulcolax 10 mg DC daily p.r.n. constipation. Calcium with vitamin D 600/400 per PEG b.i.d. Paxil 20 mg per PEG daily. MiraLAX 17 grams per PEG b.i.d. p.r.n. Flomax 0.4 mg per PEG q.h.s. secondary to urinary retention. Tylenol 650 mg per PEG every 6 hours p.r.n. pain. Voltaren topically t.i.d. Neurontin 300 mg per PEG t.i.d. Guaifenesin 10 mL per PEG every 4 hours p.r.n. Bristol 10/325 one per PEG q.6h. p.r.n. pain. Isopto Tears one drop OP p.r.n. dry eyes. Keppra 500 mg per PEG b.i.d. Milk of Magnesia 30 mL per PEG b.i.d. p.r.n. constipation. Biofreeze topically p.r.n. Propranolol 10 mg per PEG b.i.d. FOLLOWUP Patient will follow up with Dr. Jarrett in one week for medical evaluation. Follow up with Dr. Schafer in approximately one week for urological evaluation due to urinary retention/Mora care. Dr. Diaz/DAVID Herrmann, on 11/01/2016 at [address] Ordoñez on 12/13/2016 at 0900 hours for bone health evaluation. INSTRUCTIONS TO PATIENT Patient was instructed on his diagnosis and treatments provided. He received informed consent prior to surgical intervention as well as blood product transfusion. He was encouraged to be adherent with medications and participate well with therapy. He will watch for temperature greater than 100.4. He will notify nursing staff and physician of new or worsening hip pain, leg swelling, or difficulty breathing. Should other problems or need occur, he can be in contact with the nursing staff at [facility] as well as his care providers. If symptoms become quite dire, he can present to emergency room for acute evaluation. He voiced understanding of the above. Time spent with discharge greater than 35 minutes. VICTORIA
== END 2016-10-13 14:45 | DRG 466 ==
LOC: SRG 10:37 → EDSTATUS 10:39
PROVIDERS: ADMIT Internal Medicine; ATTEND Hospitalist
PROC: 0SPS0JZ Removal of Synthetic Substitute from Left Hip Joint, Femoral Surface, Open Approach (ICD-10-PCS; 2016-10-08)
PROC: 30233N1 Transfusion of Nonautologous Red Blood Cells into Peripheral Vein, Percutaneous Approach (ICD-10-PCS; 2016-10-08)
PROC: 0SRS0JA Replacement of Left Hip Joint, Femoral Surface with Synthetic Substitute, Uncemented, Open Approach (ICD-10-PCS; principal; 2016-10-08 07:30)
DX: M97.02XA Periprosthetic fracture around internal prosthetic left hip joint, initial encounter (principal); S72.002A Fracture of unspecified part of neck of left femur, initial encounter for closed fracture; I69.954 Hemiplegia and hemiparesis following unspecified cerebrovascular disease affecting left non-dominant side; D62 Acute posthemorrhagic anemia; I69.991 Dysphagia following unspecified cerebrovascular disease; R13.10 Dysphagia, unspecified; I10 Essential (primary) hypertension; R26.9 Unspecified abnormalities of gait and mobility; I95.81 Postprocedural hypotension; R33.9 Retention of urine, unspecified; W05.0XXA Fall from non-moving wheelchair, initial encounter; M85.9 Disorder of bone density and structure, unspecified; Z79.899 Other long term (current) drug therapy; Z87.891 Personal history of nicotine dependence; Z99.3 Dependence on wheelchair; Z93.1 Gastrostomy status
CPT/HCPCS: 27090; 27125; 27138; S9538; 36415; 80048; 80053; 81003; 82306; 85014; 85018; 85025; 85027; 85610; 86850; 86900; 86901; 86922; 87493; 93005